=== PATIENT | male | born 1945 | race Caucasian/White ===

== ENCOUNTER 2018-09-11 07:33 | Day surgery (SDC) | payer MEDICARE, SELFPAY ==
--- NOTE | 2018-09-11 | PATH_ITS ---
[facility] Accession Number: [id number] . 01 Material submitted: . PART A: HEPATIC FLEXURE POLYP PART B: TRANSVERSE COLON POLYPS X4 PART C: SIGMOID COLON POLYPS X2 . 02 Diagnosis: A. Hepatic Flexure, Polyp, Biopsy: Sessile serrated adenoma. . B. 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 Sessile serrated adenoma in three fragments. Benign lymphoid aggregate is one fragment. No evidence of malignancy or high-grade dysplasia. . C. Sigmoid Colon, Polyps x2, Biopsies: Serrated lesions, favor sessile serrated adenomas. [facility]/09/13/2018 . 02 Comment: As part of routine software quality automation engineer, Dr. Michele also reviewed part B2 and agrees with the interpretation. . 02 Electronically signed: . Fransisca Chaudhari MD, Pathologist NPI- [id number] . 01 Gross description: . Received three formalin-filled containers, each labeled with the patient's name: . A. In a container labeled hepatic flexure polyp, the specimen consists of two less than 0.1 cm to 0.3 cm portions of tissue, entirely submitted in cassette A. B. In a container labeled transverse colon polyp, the specimen consists of four 0.2-0.6 cm portions of tissue, entirely submitted in cassette B1. Also received in the same container is a 1.0 x 1.0 x 0.7 cm portion of tissue, which is sectioned into four pieces and entirely submitted in cassette B2. C. In a container labeled sigmoid polyps x2, are two 0.3-0.5 cm portions of tissue, entirely submitted in cassette C. ([id number]) /FRR . 02 Pathologist provided ICD-10: D12.3, D12.5 . 02 CPT . 289445, 243908, 445246 Performed at: [address] [facility] [address] [id number] MD Jasbir Garcia MD Phone: [phone] Performed at: 02 [facility] [address] [place] [id number] MD Fransisca Chaudhari MD Phone: [phone]
[2018-09-11 07:50] VITALS: BP 160/82; PULSE 81; RESP 15; TEMP 36.8; O2SAT 96
[2018-09-11 07:59] VITALS: BMI 29.9
--- NOTE | 2018-09-11 08:48 | PM.HP.1 ---
History of Present Illness Date Patient Seen: 09/11/18 Time Patient Seen: 08:48 Chief complaint: 72082 Narrative: History of polyps Patient History Medical History Obstructive sleep apnea of adult (Chronic) Primary insomnia (Resolved) Excessive daytime sleepiness (Chronic) Snoring (Resolved) Bronchospastic airway disease (Acute) Family & Social History Social History: household members spouse Tobacco & Substance use: Smoking Status Never smoker Meds Home Medications Medication Instructions Recorded Confirmed Type [VITAMIN D] 2,000 iu PO QDAY #0 01/06/11 09/11/18 History albuterol sulfate [Ventolin HFA] 2 puff INHALATION PRN PRN 09/11/18 09/11/18 History aspirin 81 mg PO DAILY 09/11/18 09/11/18 History fluticasone [Flonase Allergy 4 spray INTRANASAL PRN PRN 09/11/18 09/11/18 History Relief] tiotropium bromide [Spiriva with 1 puff INHALATION 09/11/18 History HandiHaler] Allergies Allergy/AdvReac Type Severity Reaction Status Date / Time morphine AdvReac Mild Redness of Verified 09/11/18 07:49 Skin Exam Vital Signs (past 8 hours): - 09/11/18 07:50 Temperature 98.2 F Pulse Rate 81 Respiratory Rate 15 Blood Pressure 160/82 H Pulse Oximetry 96 Oxygen Delivery Method Room Air Narrative Exam Narrative: Oropharynx free of lesions Chest clear to auscultation percussion Cardiac exam reveals no S3 or murmur Assessment & Plan Plan: Assessment/Plan Narrative: History of adenomatous colon polyps need for follow-up colonoscopy at a 3 year interval. Risks, benefits, alternatives have been explained. Colonoscopy will be performed today.
[2018-09-11] MEDS: SODIUM CHLORIDE 0.9% 1,000 ML 42 ML IV (08:59)
--- NOTE | 2018-09-11 09:23 | PM.OP.ENDO ---
Operative Date/Time/Diagnoses Date of procedure: 09/11/18 Time of procedure: 09:23 Pre-op diagnosis: See indication and findings Post-op diagnosis: same Procedure & Clinicians Study performed: Colonoscopy Same procedure as scheduled: Yes Surgeon: Maxime Atkins Procedure Notes Procedure in detail: After informed consent was obtained the patient was placed in left lateral decubitus position. The video colonoscope was introduced the rectum slowly advanced to the cecum. On slow withdrawal mucosa was carefully examined. Scope was removed. Patient tolerated procedure well. Blood loss none Complications none Sedation Total sedation time 41 min Versed 9 mg fentanyl 100 mcg IV titration Findings is 1. 8 mm polyp at the hepatic flexure which was hot snared and removed completely. The specimen was lost. 2. Two somewhat flat 1-1.2 cm polyps were seen opposite each other in the mid transverse colon. Both were injected with saline to lift and both were removed with snare. Both were retrieved. 3. One 4 middle polyp in the proximal transverse colon which was Jumbo biopsy removed completely and placed in the same bottle as 2. 4. One 1.8 cm semi pedunculated polyp in the distal transverse colon. This was injected to raise it and hot snared and removed completely and retrieved. This was placed in the same bottle as 2. 5. Two 8 mm semi pedunculated sigmoid polyps immediately adjacent to each other. Both were hot snared and removed completely and retrieved. 6. Extensive diverticulosis sigmoid colon Will get back to Mr. Peña on his polyps and need for follow-up in 1 or 3 years. Document created with voice recognition software so may contain inadvertent tears.
[2018-09-11] MEDS: MIDAZOLAM 5 MG/5 ML VIAL IV (10:02)
[2018-09-11] MEDS: fentaNYL 250 MCG/5 ML INJ IV (10:03)
[2018-09-11 10:22] VITALS: BP 125/71; PULSE 68; RESP 17; TEMP 36.6; O2SAT 92
[2018-09-11 10:27] VITALS: BP 119/66; PULSE 66; RESP 16; TEMP 36.6; O2SAT 95
[2018-09-11 10:32] VITALS: BP 117/66; PULSE 66; RESP 17; TEMP 37.1; O2SAT 96
[2018-09-11 10:40] VITALS: BP 119/65; PULSE 74; RESP 15; TEMP 37; O2SAT 92
[2018-09-11 11:33] VITALS: BP 127/75; PULSE 70; RESP 15; TEMP 36.2; O2SAT 97
== END 2018-09-11 11:40 | disposition home or self-care (01) ==
PROVIDERS: Family Provider Internal Medicine; PCP Internal Medicine; Visit Provider Internal Medicine Gastroenterology
PROC: 0DJD8ZZ Inspection of Lower Intestinal Tract, Via Natural or Artificial Opening Endoscopic (ICD-10-PCS; CPT 45378; principal; 2018-09-11 09:30)
DX: Z86.010 Personal history of colon polyps (principal); K57.30 Diverticulosis of large intestine without perforation or abscess without bleeding; G47.33 Obstructive sleep apnea (adult) (pediatric); D12.3 Benign neoplasm of transverse colon; D12.5 Benign neoplasm of sigmoid colon
CPT/HCPCS: 45385; 45380; J2250; J3010

== ENCOUNTER 2018-09-16 19:16 | Emergency (ER) | payer MEDICARE, SELFPAY ==
[2018-09-16 19:21] VITALS: BP 120/86; PULSE 70; RESP 20; TEMP 36.6; O2SAT 100; BMI 29.9
--- NOTE | 2018-09-16 19:25 | DI.CT.S_ITS ---
PROCEDURE: CT ABDOMEN PELVIS W CON INDICATIONS: gi bleeding, had c-scope and multi polyps removed TECHNIQUE: After the administration of intravenous contrast, 5 mm thick sections acquired from the diaphragm to the symphysis. 5 mm coronal and sagittal reformats were acquired. For radiation dose reduction, the following was used: automated exposure control, adjustment of mA and/or kV according to patient size. COMPARISON: [facility], , ABD AORTA ANEURYSM SCREENING, 04/13/2015, 9:01. FINDINGS: Image quality: Excellent. ABDOMEN: Lung bases: Lung bases are clear. Heart size is normal. Solid organs: Liver is mildly prominent. Hepatic steatosis is present. Gallbladder is unremarkable. Biliary system is non dilated. Pancreas enhances normally. Spleen is normal in size and enhancement. No adrenal nodules. Kidneys demonstrate normal enhancement, without hydronephrosis. Bilateral low attenuation foci are present the largest is on the right measuring 13 mm. Peritoneum and bowel: Bowel loops demonstrate normal wall thickness and caliber. No free fluid or air. Minimal scattered diverticula are present. Nodes and vessels: No retroperitoneal or mesenteric adenopathy by size criteria. Aorta and inferior vena cava are normal in size. Miscellaneous: No ventral hernias. Hiatal hernia is present. In addition, mild distal esophageal thickening is present. PELVIS: Genitourinary: Bladder wall thickness is normal. Miscellaneous: Prominent bilateral fat containing inguinal hernias are present. The prostate gland is enlarged. Bones: No suspicious bony lesions. No vertebral body compression fractures. IMPRESSION: 1. No acute intra-abdominal or pelvic process. 2. Renal cysts. 3. Minimal diverticula without inflammatory change. 4. Hiatal hernia with distal esophageal thickening. The latter could be secondary to esophagitis. Clinical correlation is recommended and followup as indicated. Dictated by: Viktoria Freeman M.D. on 09/16/2018 at 20:47 Approved by: Viktoria Freeman M.D. on 09/16/2018 at 20:51
[2018-09-16 19:32] LABS: Add Manual Diff / Slide Review NO; Basophils Percent Auto 0.5 % (0-2); Eosinophils Percent Auto 0.9 % (2-4); Hematocrit 37.3 % (41-53); Hemoglobin 12.5 g/dL (13.5-17.5); Lymphocytes Percent Auto 19.9 % (25-40); Mean Corpuscular HGB Conc 33.5 % (30-36); Mean Corpuscular Hemoglobin 32.8 PG (26-34); Mean Corpuscular Volume 97.9 fL (80-100); Monocytes Percent Auto 11.3 % (3-14); Neutrophils Absolute Auto 7400 /uL (1500-7000); Neutrophils Percent Auto 67.4 % (50-75); Platelet Count 238 X10^3/uL (150-400); Red Blood Cell Count 3.81 X10^6/uL (4.5-5.9); Red Cell Distribution Width 12.7 % (11.6-14.8); White Blood Cell Count 10.9 X10^3/uL (4.5-11.0)
[2018-09-16 19:33] LABS: Prothrombin Time 11.1 SECONDS (10.1-12.7)
--- NOTE | 2018-09-16 19:33 | ED.GIBLEED ---
HPI - GI Bleed General Chief complaint: Syncope Stated complaint: Possible GI Bleed Time Seen by Provider: 09/16/18 19:18 Source: patient, EMS and old records reviewed Mode of arrival: EMS Limitations: no limitations History of Present Illness HPI Narrative: This is a 73-year-old male who comes to the emergency department with complaint of syncope. Patient states he has been having coffee-ground stools about every 45 min to an hour since about 10 30 this morning. Patient had a colonoscopy with 7 polyps removed 1 of which he was told was large on the 11 of September. Patient states he did have any bleeding until today. Initially he saw little bright red blood mixed with the black tarry and then has since been this black coffee-ground stool. Patient has felt lightheaded, he had a syncopal episode while on the toilet. He states he felt it coming on it lasted about a couple seconds. His caught him so he did not fall or have any injuries. He has not had any nausea or vomiting, he denies any abdominal pain. No chest pain. He has felt a little short of breath immediately after the syncopal episode. He has not had any urinary symptoms. He does normally take an aspirin but has not had any since before the colonoscopy except for last night. He has a history of some COPD but denies any other medical problems. He has had a ankle surgery in the past but no other surgeries. Related Data Home Medications Medication Instructions Recorded Confirmed [VITAMIN D] 2,000 iu PO QDAY #0 01/06/11 09/11/18 albuterol sulfate [Ventolin HFA] 2 puff INHALATION PRN PRN 09/11/18 09/11/18 aspirin 81 mg PO DAILY 09/11/18 09/11/18 fluticasone [Flonase Allergy 4 spray INTRANASAL PRN PRN 09/11/18 09/11/18 Relief] tiotropium bromide [Spiriva with 1 puff INHALATION 09/11/18 HandiHaler] Allergies Allergy/AdvReac Type Severity Reaction Status Date / Time morphine AdvReac Mild Redness of Verified 09/11/18 07:49 Skin Review of Systems Review of Systems All systems reviewed & are unremarkable except as noted in HPI and below Constitutional Denies weakness Cardiovascular Denies chest pain, Reports diaphoresis, Reports syncope, Denies irregular heart rhythm, Reports lightheadedness, Denies palpitations, Reports dyspnea (After syncope), Denies dyspnea on exertion and Denies orthopnea Respiratory Reports dyspnea (After syncope) and Denies dyspnea on exertion Gastrointestinal Gastrointestinal: Denies abdominal pain, Reports melena, Reports hematochezia, Denies change in bowel habits, Denies coffee ground emesis, Denies constipation, Reports diarrhea, Denies nausea, Denies vomiting and Denies hematemesis Genitourinary Denies hematuria and Denies dysuria Integumentary/Breasts Denies unusual bruising Neurologic Reports syncope and Denies weakness Endocrine Denies palpitations [facility] Medical History Obstructive sleep apnea of adult (Chronic) Primary insomnia (Resolved) Excessive daytime sleepiness (Chronic) Snoring (Resolved) Bronchospastic airway disease (Acute) Surgical History S/P colonoscopic polypectomy (Acute) Social History household members: spouse Smoking Status: Never smoker Exam Narrative Exam Narrative: GENERAL: Alert and oriented x three, well-nourished, well-appearing male in mild distress. Patient is not diaphoretic to touch. HEENT: Head normocephalic, atraumatic, EOMI, pupils reactive, face symmetric, no conjunctival pallor, moist mucous membranes NECK: Supple, full range of motion CARDIOVASCULAR: Regular rate and rhythm without murmurs, rubs or gallops. RESPIRATORY: Breath sounds equal bilaterally, no wheezes rales or rhonchi. ABDOMEN: Soft, nontender. Normoactive bowel sounds all 4 quadrants. No guarding or rebound, rigidity, no mass, nondistended. Patient's Hemoccult is positive. There is no gross red blood on exam. : No CVA tenderness EXTREMITIES: Normal range of motion, no clubbing or edema. Neurovascularly intact NEUROLOGICAL: Cranial nerves II through XII grossly intact. Moving all extremities SKIN: Warm, dry, no petechiae, no rashes or lesions. Initial Vital Signs Initial Vital Signs: Vital Signs Temperature 97.8 F 09/16/18 19:21 Pulse Rate 70 09/16/18 19:21 Respiratory Rate 20 09/16/18 19:21 Blood Pressure 120/86 09/16/18 19:21 Pulse Oximetry 100 09/16/18 19:21 Course Orders Ordered: Discontinued Medications Sodium Chloride (Normal Saline 0.9%) 1,000 mls @ 150 mls/hr IV CONT ROBERT Last Admin: 09/16/18 20:00 Dose: Sodium Chloride (Normal Saline 0.9%) 1,000 mls @ 1,000 mls/hr IV BOLUS ONE Stop: 09/16/18 20:55 Last Infusion: 09/16/18 22:13 Dose: 0 mls/hr Admin: 09/16/18 20:50 Dose: 1,000 mls/hr Pantoprazole Sodium (Protonix) 40 mg IV NOW ONE Stop: 09/16/18 19:25 Last Admin: 09/16/18 19:39 Dose: 40 mg Vital Signs - 8 hr 09/16/18 20:55 09/16/18 21:10 09/16/18 22:20 Pulse Rate 77 72 68 Respiratory Rate 23 23 20 Blood Pressure [Left Arm] 99/61 91/72 114/89 Pulse Oximetry 96 99 100 09/16/18 22:38 09/16/18 23:17 09/17/18 00:02 Pulse Rate 68 68 77 Respiratory Rate 16 20 18 Blood Pressure [Left Arm] 96/59 L 123/72 105/63 Pulse Oximetry 100 98 97 09/17/18 00:44 09/17/18 02:46 Pulse Rate 70 70 Respiratory Rate 17 17 Blood Pressure [Left Arm] 93/46 L 108/62 Pulse Oximetry 99 94 MDM - GI Bleed Lab Data Attestation: I reviewed the patient's lab results. Result diagrams: 09/16/18 19:15 09/16/18 19:15 Lab Results 09/16/18 09/16/18 09/16/18 Range/Units 19:15 19:15 19:15 WBC 10.9 (4.5-11.0) X10^3/uL RBC 3.81 L (4.5-5.9) X10^6/uL Hgb 12.5 L (13.5-17.5) g/dL Hct 37.3 L (41-53) % MCV 97.9 (80-100) fL MCH 32.8 (26-34) PG MCHC 33.5 (30-36) % RDW 12.7 (11.6-14.8) % Plt Count 238 (150-400) X10^3/uL Neut % (Auto) 67.4 (50-75) % Lymph % (Auto) 19.9 L (25-40) % Barry % (Auto) 11.3 (3-14) % Eos % (Auto) 0.9 L (2-4) % Baso % (Auto) 0.5 (0-2) % Neut # (Auto) 7400 H (9911-1858) /uL PT 11.1 (10.1-12.7) SECONDS INR 1.0 (0.9-1.3) APTT 22 L (26.4-36.2) SECONDS Sodium 142 (137-145) mmol/L Potassium 3.9 (3.4-5.1) mmol/L Chloride 104 (98-107) mmol/L Carbon Dioxide 22 (22-32) mmol/L BUN 17 (9-20) mg/dL Creatinine 1.30 H (0.66-1.25) mg/dL Estimated GFR 54.0 L (>60) mL/min BUN/Creatinine Ratio 13.1 (6-22) Glucose 182 H (80-110) mg/dL Calcium 9.0 (8.4-10.2) mg/dL Total Bilirubin 0.3 (0.2-1.3) mg/dL AST 18 (17-59) IU/L ALT 26 (21-72) IU/L Alkaline Phosphatase 55 (38-126) U/L Troponin I < 0.012 (0.01-0.034) ng/mL Total Protein 6.6 (6.3-8.2) g/dL Albumin 4.0 (3.5-5.0) g/dL Globulin 2.6 (1.7-4.1) g/dL Albumin/Globulin Ratio 1.5 (1.0-2.8) Lipase 51 (23-300) U/L Blood Type Antibody Screen 09/16/18 09/16/18 Range/Units 19:15 19:34 WBC (4.5-11.0) X10^3/uL RBC (4.5-5.9) X10^6/uL Hgb (13.5-17.5) g/dL Hct (41-53) % MCV (80-100) fL MCH (26-34) PG MCHC (30-36) % RDW (11.6-14.8) % Plt Count (150-400) X10^3/uL Neut % (Auto) (50-75) % Lymph % (Auto) (25-40) % Barry % (Auto) (3-14) % Eos % (Auto) (2-4) % Baso % (Auto) (0-2) % Neut # (Auto) (8695-1231) /uL PT (10.1-12.7) SECONDS INR (0.9-1.3) APTT (26.4-36.2) SECONDS Sodium (137-145) mmol/L Potassium (3.4-5.1) mmol/L Chloride (98-107) mmol/L Carbon Dioxide (22-32) mmol/L BUN (9-20) mg/dL Creatinine (0.66-1.25) mg/dL Estimated GFR (>60) mL/min BUN/Creatinine Ratio (6-22) Glucose (80-110) mg/dL Calcium (8.4-10.2) mg/dL Total Bilirubin (0.2-1.3) mg/dL AST (17-59) IU/L ALT (21-72) IU/L Alkaline Phosphatase (38-126) U/L Troponin I Cancelled (0.01-0.034) ng/mL Total Protein (6.3-8.2) g/dL Albumin (3.5-5.0) g/dL Globulin (1.7-4.1) g/dL Albumin/Globulin Ratio (1.0-2.8) Lipase (23-300) U/L Blood Type O Positive Antibody Screen Negative Point of Care Testing Stool Occult Blood Positive Imaging Data CT scan - abdomen: Radiologist's impression: [address] [address] [address] Scan Report Signed Patient: Je Small MR#: [id number] : 1945 Acct:[id number] Age/Sex: 73 / M Date of Service: 09/16/18 Loc: ED Accession Number: [id number] Procedure: CT abdomen pelvis w con Ordering Provider: Danica Leahy D.O. PROCEDURE: CT ABDOMEN PELVIS W CON INDICATIONS: gi bleeding, had c-scope and multi polyps removed TECHNIQUE: After the administration of intravenous contrast, 5 mm thick sections acquired from the diaphragm to the symphysis. 5 mm coronal and sagittal reformats were acquired. For radiation dose reduction, the following was used: automated exposure control, adjustment of mA and/or kV according to patient size. COMPARISON: [facility], , ABD AORTA ANEURYSM SCREENING, 04/13/2015, 9:01. FINDINGS: Image quality: Excellent. ABDOMEN: Lung bases: Lung bases are clear. Heart size is normal. Solid organs: Liver is mildly prominent. Hepatic steatosis is present. Gallbladder is unremarkable. Biliary system is non dilated. Pancreas enhances normally. Spleen is normal in size and enhancement. No adrenal nodules. Kidneys demonstrate normal enhancement, without hydronephrosis. Bilateral low attenuation foci are present the largest is on the right measuring 13 mm. Peritoneum and bowel: Bowel loops demonstrate normal wall thickness and caliber. No free fluid or air. Minimal scattered diverticula are present. Nodes and vessels: No retroperitoneal or mesenteric adenopathy by size criteria. Aorta and inferior vena cava are normal in size. Miscellaneous: No ventral hernias. Hiatal hernia is present. In addition, mild distal esophageal thickening is present. PELVIS: Genitourinary: Bladder wall thickness is normal. Miscellaneous: Prominent bilateral fat containing inguinal hernias are present. The prostate gland is enlarged. Bones: No suspicious bony lesions. No vertebral body compression fractures. IMPRESSION: 1. No acute intra-abdominal or pelvic process. 2. Renal cysts. 3. Minimal diverticula without inflammatory change. 4. Hiatal hernia with distal esophageal thickening. The latter could be secondary to esophagitis. Clinical correlation is recommended and followup as indicated. Dictated by: Viktoria Freeman M.D. on 09/16/2018 at 20:47 Approved by: Viktoria Freeman M.D. on 09/16/2018 at 20:51 ECG Data Attestation: I personally reviewed and interpreted this ECG as follows: Interpretation: Sinus rhythm with a rate of 66, right bundle branch block and left anterior fascicular block. QTC of 410. No clear ST segments noted. No prior EKGs. MDM Narrative Medical decision making narrative: Patient comes in with positive Hemoccult and complaint of GI bleeding. Patient has a recent polypectomy with some multiple polyps. Patient's hemoglobin appears stable from prior, he has an elevation in his creatinine but not in his BUN. His electrolytes are otherwise normal. Patient pressure has drifted down to the 90 systolic range. It is stated in the 90s. Patient does get dizzy when he is standing or tries to sit upright. He has not been tachycardic it is not any medications that should blunt a tachycardic response. The patient case was discussed with Dr. Rice who is on for his county judge. She practices through [facility] in [place]. They would like patient to be transferred in order to do prep and colonoscopy. Spoke with Dr. Martinez hospitalist at [facility] who accepts for transfer. There is some delay in the actual transfer as they have beds available but need a little bit of time. Patient and family are comfortable with the plan and aware of transfer. Patient pressure consistently in the 90's during stay, no tachycardia. Patient does feel dizzy when upright/standing. Patient most recent BP 100 systolic. Discharge Plan Departure Clinical Impression: Acute GI bleeding, Syncope Prescriptions: No Action [VITAMIN D] 2,000 iu PO QDAY Qty: 0 RF: 0 aspirin 81 mg Tablet,Chewable 81 mg PO DAILY RF: 0 albuterol sulfate [Ventolin HFA] 90 mcg/actuation HFA aerosol inhaler 2 puff Inhalation PRN PRN (Reason: Allergy Symptoms) RF: 0 fluticasone [Flonase Allergy Relief] 50 mcg/actuation [place],Suspension 4 spray Intranasal PRN PRN (Reason: Allergy Symptoms) RF: 0 tiotropium bromide [Spiriva with HandiHaler] 18 mcg capsule, w/inhalation device 1 puff Inhalation RF: 0 Referrals: Jose Gonzalez MD [Primary Care Provider] -
[2018-09-16 19:36] LABS: PTT Partial Thromboplastin Tim 22 SECONDS (26.4-36.2)
--- NOTE | 2018-09-16 19:37 | ED_ITS ---
HPI - GI Bleed General Chief complaint: Syncope Stated complaint: Possible GI Bleed Time Seen by Provider: 09/16/18 19:18 Source: patient, EMS and old records reviewed Mode of arrival: EMS Limitations: no limitations History of Present Illness HPI Narrative: This is a 73-year-old male who comes to the emergency department with complaint of syncope. Patient states he has been having coffee-ground stools about every 45 min to an hour since about 10 30 this morning. Patient had a colonoscopy with 7 polyps removed 1 of which he was told was large on the 11 of September. Patient states he did have any bleeding until today. Initially he saw little bright red blood mixed with the black tarry and then has since been this black coffee-ground stool. Patient has felt lightheaded, he had a syncopal episode while on the toilet. He states he felt it coming on it lasted about a couple seconds. His caught him so he did not fall or have any injuries. He has not had any nausea or vomiting, he denies any abdominal pain. No chest pain. He has felt a little short of breath immediately after the syncopal episode. He has not had any urinary symptoms. He does normally take an aspirin but has not had any since before the colonoscopy except for last night. He has a history of some COPD but denies any other medical problems. He has had a ankle surgery in the past but no other surgeries. Related Data Home Medications Medication Instructions Recorded Confirmed [VITAMIN D] 2,000 iu PO QDAY #0 01/06/11 09/11/18 albuterol sulfate [Ventolin HFA] 2 puff INHALATION PRN PRN 09/11/18 09/11/18 aspirin 81 mg PO DAILY 09/11/18 09/11/18 fluticasone [Flonase Allergy 4 spray INTRANASAL PRN PRN 09/11/18 09/11/18 Relief] tiotropium bromide [Spiriva with 1 puff INHALATION 09/11/18 HandiHaler] Allergies Allergy/AdvReac Type Severity Reaction Status Date / Time morphine AdvReac Mild Redness of Verified 09/11/18 07:49 Skin Review of Systems Review of Systems All systems reviewed & are unremarkable except as noted in HPI and below Constitutional Denies weakness Cardiovascular Denies chest pain, Reports diaphoresis, Reports syncope, Denies irregular heart rhythm, Reports lightheadedness, Denies palpitations, Reports dyspnea (After syncope), Denies dyspnea on exertion and Denies orthopnea Respiratory Reports dyspnea (After syncope) and Denies dyspnea on exertion Gastrointestinal Gastrointestinal: Denies abdominal pain, Reports melena, Reports hematochezia, Denies change in bowel habits, Denies coffee ground emesis, Denies constipation , Reports diarrhea, Denies nausea, Denies vomiting and Denies hematemesis Genitourinary Denies hematuria and Denies dysuria Integumentary/Breasts Denies unusual bruising Neurologic Reports syncope and Denies weakness Endocrine Denies palpitations [facility] Medical History Obstructive sleep apnea of adult (Chronic) Primary insomnia (Resolved) Excessive daytime sleepiness (Chronic) Snoring (Resolved) Bronchospastic airway disease (Acute) Surgical History S/P colonoscopic polypectomy (Acute) Social History household members: spouse Smoking Status: Never smoker Exam Narrative Exam Narrative: GENERAL: Alert and oriented x three, well-nourished, well- appearing male in mild distress. Patient is not diaphoretic to touch. HEENT: Head normocephalic, atraumatic, EOMI, pupils reactive, face symmetric, no conjunctival pallor, moist mucous membranes NECK: Supple, full range of motion CARDIOVASCULAR: Regular rate and rhythm without murmurs, rubs or gallops. RESPIRATORY: Breath sounds equal bilaterally, no wheezes rales or rhonchi. ABDOMEN: Soft, nontender. Normoactive bowel sounds all 4 quadrants. No guarding or rebound, rigidity, no mass, nondistended. Patient's Hemoccult is positive. There is no gross red blood on exam. : No CVA tenderness EXTREMITIES: Normal range of motion, no clubbing or edema. Neurovascularly intact NEUROLOGICAL: Cranial nerves II through XII grossly intact. Moving all extremities SKIN: Warm, dry, no petechiae, no rashes or lesions. Initial Vital Signs Initial Vital Signs: Vital Signs Temperature 97.8 F 09/16/18 19:21 Pulse Rate 70 09/16/18 19:21 Respiratory Rate 20 09/16/18 19:21 Blood Pressure 120/86 09/16/18 19:21 Pulse Oximetry 100 09/16/18 19:21 Course Orders Ordered: Discontinued Medications Sodium Chloride (Normal Saline 0.9%) 1,000 mls @ 150 mls/hr IV CONT ROBERT Last Admin: 09/16/18 20:00 Dose: Sodium Chloride (Normal Saline 0.9%) 1,000 mls @ 1,000 mls/hr IV BOLUS ONE Stop: 09/16/18 20:55 Last Infusion: 09/16/18 22:13 Dose: 0 mls/hr Admin: 09/16/18 20:50 Dose: 1,000 mls/hr Pantoprazole Sodium (Protonix) 40 mg IV NOW ONE Stop: 09/16/18 19:25 Last Admin: 09/16/18 19:39 Dose: 40 mg Vital Signs - 8 hr 09/16/18 20:55 09/16/18 21:10 09/16/18 22:20 Pulse Rate 77 72 68 Respiratory Rate 23 23 20 Blood Pressure [Left Arm] 99/61 91/72 114/89 Pulse Oximetry 96 99 100 09/16/18 22:38 09/16/18 23:17 09/17/18 00:02 Pulse Rate 68 68 77 Respiratory Rate 16 20 18 Blood Pressure [Left Arm] 96/59 L 123/72 105/63 Pulse Oximetry 100 98 97 09/17/18 00:44 09/17/18 02:46 Pulse Rate 70 70 Respiratory Rate 17 17 Blood Pressure [Left Arm] 93/46 L 108/62 Pulse Oximetry 99 94 MDM - GI Bleed Lab Data Attestation: I reviewed the patient's lab results. Result diagrams: 09/16/18 19:15 09/16/18 19:15 Lab Results 09/16/18 09/16/18 09/16/18 Range/Units 19:15 19:15 19:15 WBC 10.9 (4.5-11.0) X10^3/uL RBC 3.81 L (4.5-5.9) X10^6/uL Hgb 12.5 L (13.5-17.5) g/dL Hct 37.3 L (41-53) % MCV 97.9 (80-100) fL MCH 32.8 (26-34) PG MCHC 33.5 (30-36) % RDW 12.7 (11.6-14.8) % Plt Count 238 (150-400) X10^3/uL Neut % (Auto) 67.4 (50-75) % Lymph % (Auto) 19.9 L (25-40) % [place] % (Auto) 11.3 (3-14) % Eos % (Auto) 0.9 L (2-4) % Baso % (Auto) 0.5 (0-2) % Neut # (Auto) 7400 H (0363-3740) /uL PT 11.1 (10.1-12.7) SECONDS INR 1.0 (0.9-1.3) APTT 22 L (26.4-36.2) SECONDS Sodium 142 (137-145) mmol/L Potassium 3.9 (3.4-5.1) mmol/L Chloride 104 (98-107) mmol/L Carbon Dioxide 22 (22-32) mmol/L BUN 17 (9-20) mg/dL Creatinine 1.30 H (0.66-1.25) mg/dL Estimated GFR 54.0 L (>60) mL/min BUN/Creatinine Ratio 13.1 (6-22) Glucose 182 H (80-110) mg/dL Calcium 9.0 (8.4-10.2) mg/dL Total Bilirubin 0.3 (0.2-1.3) mg/dL AST 18 (17-59) IU/L ALT 26 (21-72) IU/L Alkaline Phosphatase 55 (38-126) U/L Troponin I < 0.012 (0.01-0.034) ng/mL Total Protein 6.6 (6.3-8.2) g/dL Albumin 4.0 (3.5-5.0) g/dL Globulin 2.6 (1.7-4.1) g/dL Albumin/Globulin Ratio 1.5 (1.0-2.8) Lipase 51 (23-300) U/L Blood Type Antibody Screen 09/16/18 09/16/18 Range/Units 19:15 19:34 WBC (4.5-11.0) X10^3/uL RBC (4.5-5.9) X10^6/uL Hgb (13.5-17.5) g/dL Hct (41-53) % MCV (80-100) fL MCH (26-34) PG MCHC (30-36) % RDW (11.6-14.8) % Plt Count (150-400) X10^3/uL Neut % (Auto) (50-75) % Lymph % (Auto) (25-40) % [place] % (Auto) (3-14) % Eos % (Auto) (2-4) % Baso % (Auto) (0-2) % Neut # (Auto) (2882-1939) /uL PT (10.1-12.7) SECONDS INR (0.9-1.3) APTT (26.4-36.2) SECONDS Sodium (137-145) mmol/L Potassium (3.4-5.1) mmol/L Chloride (98-107) mmol/L Carbon Dioxide (22-32) mmol/L BUN (9-20) mg/dL Creatinine (0.66-1.25) mg/dL Estimated GFR (>60) mL/min BUN/Creatinine Ratio (6-22) Glucose (80-110) mg/dL Calcium (8.4-10.2) mg/dL Total Bilirubin (0.2-1.3) mg/dL AST (17-59) IU/L ALT (21-72) IU/L Alkaline Phosphatase (38-126) U/L Troponin I Cancelled (0.01-0.034) ng/mL Total Protein (6.3-8.2) g/dL Albumin (3.5-5.0) g/dL Globulin (1.7-4.1) g/dL Albumin/Globulin Ratio (1.0-2.8) Lipase (23-300) U/L Blood Type O Positive Antibody Screen Negative Point of Care Testing Stool Occult Blood Positive Imaging Data CT scan - abdomen: Radiologist's impression: [address] [address] [address] Scan Report Signed Patient: Je Small MR#: [id number] : 1945 Acct:[id number] Age/Sex: 73 / M Date of Service: 09/16/18 Loc: ED Accession Number: [id number] Procedure: CT abdomen pelvis w con Ordering Provider: Danica Leahy D.O. PROCEDURE: CT ABDOMEN PELVIS W CON INDICATIONS: gi bleeding, had c-scope and multi polyps removed TECHNIQUE: After the administration of intravenous contrast, 5 mm thick sections acquired from the diaphragm to the symphysis. 5 mm coronal and sagittal reformats were acquired. For radiation dose reduction, the following was used: automated exposure control, adjustment of mA and/or kV according to patient size. COMPARISON: [facility], , ABD AORTA ANEURYSM SCREENING, 04/13/2015, 9:01. FINDINGS: Image quality: Excellent. ABDOMEN: Lung bases: Lung bases are clear. Heart size is normal. Solid organs: Liver is mildly prominent. Hepatic steatosis is present. Gallbladder is unremarkable. Biliary system is non dilated. Pancreas enhances normally. Spleen is normal in size and enhancement. No adrenal nodules. Kidneys demonstrate normal enhancement, without hydronephrosis. Bilateral low attenuation foci are present the largest is on the right measuring 13 mm. Peritoneum and bowel: Bowel loops demonstrate normal wall thickness and caliber. No free fluid or air. Minimal scattered diverticula are present. Nodes and vessels: No retroperitoneal or mesenteric adenopathy by size criteria. Aorta and inferior vena cava are normal in size. Miscellaneous: No ventral hernias. Hiatal hernia is present. In addition, mild distal esophageal thickening is present. PELVIS: Genitourinary: Bladder wall thickness is normal. Miscellaneous: Prominent bilateral fat containing inguinal hernias are present. The prostate gland is enlarged. Bones: No suspicious bony lesions. No vertebral body compression fractures. IMPRESSION: 1. No acute intra-abdominal or pelvic process. 2. Renal cysts. 3. Minimal diverticula without inflammatory change. 4. Hiatal hernia with distal esophageal thickening. The latter could be secondary to esophagitis. Clinical correlation is recommended and followup as indicated. Dictated by: Viktoria Freeman M.D. on 09/16/2018 at 20:47 Approved by: Viktoria Freeman M.D. on 09/16/2018 at 20:51 ECG Data Attestation: I personally reviewed and interpreted this ECG as follows: Interpretation: Sinus rhythm with a rate of 66, right bundle branch block and left anterior fascicular block. QTC of 410. No clear ST segments noted. No prior EKGs. MDM Narrative Medical decision making narrative: Patient comes in with positive Hemoccult and complaint of GI bleeding. Patient has a recent polypectomy with some multiple polyps. Patient's hemoglobin appears stable from prior, he has an elevation in his creatinine but not in his BUN. His electrolytes are otherwise normal. Patient pressure has drifted down to the 90 systolic range. It is stated in the 90s. Patient does get dizzy when he is standing or tries to sit upright. He has not been tachycardic it is not any medications that should blunt a tachycardic response. The patient case was discussed with Dr. 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 She practices through [facility] in [place]. They would like patient to be transferred in order to do prep and colonoscopy. Spoke with Dr. Martinez hospitalist at [place] who accepts for transfer. There is some delay in the actual transfer as they have beds available but need a little bit of time. Patient and family are comfortable with the plan and aware of transfer. Patient pressure consistently in the 90's during stay, no tachycardia. Patient does feel dizzy when upright/standing. Patient most recent BP 100 systolic. Discharge Plan Departure Clinical Impression: Acute GI bleeding, Syncope Prescriptions: No Action [VITAMIN D] 2,000 iu PO QDAY Qty: 0 RF: 0 aspirin 81 mg Tablet,Chewable 81 mg PO DAILY RF: 0 albuterol sulfate [Ventolin HFA] 90 mcg/actuation HFA aerosol inhaler 2 puff Inhalation PRN PRN (Reason: Allergy Symptoms) RF: 0 fluticasone [Flonase Allergy Relief] 50 mcg/actuation Isabella,Suspension 4 spray Intranasal PRN PRN (Reason: Allergy Symptoms) RF: 0 tiotropium bromide [Spiriva with HandiHaler] 18 mcg capsule, w/inhalation device 1 puff Inhalation RF: 0 Referrals: Jose Gonzalez MD [Primary Care Provider] -
[2018-09-16] MEDS: PANTOPRAZOLE 40 MG VIAL IV (19:39)
[2018-09-16 19:43] LABS: Alanine Aminotransferase 26 IU/L (21-72); Albumin Globulin Ratio 1.5 (1.0-2.8); Alkaline Phosphatase 55 U/L (38-126); Aspartate Aminotransferase 18 IU/L (17-59); BUN Creatinine Ratio 13.1 (6-22); Bilirubin Total 0.3 mg/dL (0.2-1.3); Blood Urea Nitrogen 17 mg/dL (9-20); Carbon Dioxide 22 mmol/L (22-32); Chloride 104 mmol/L (98-107); Globulin 2.6 g/dL (1.7-4.1); Glucose 182 mg/dL (80-110); HEMOLYSIS < 15 (0-50); Lipase 51 U/L (23-300); Potassium 3.9 mmol/L (3.4-5.1); Sodium 142 mmol/L (137-145); Total Protein 6.6 g/dL (6.3-8.2)
[2018-09-16 19:56] LABS: Troponin I < 0.012 ng/mL (0.01-0.034)
[2018-09-16] MEDS: SODIUM CHLORIDE 0.9% 1,000 ML 1000 ML IV (20:50)
[2018-09-16 20:55] VITALS: BP 99/61; PULSE 77; RESP 23; O2SAT 96
--- NOTE | 2018-09-16 21:09 | PC.NURSE ---
Noted pt's BP as 91/72 with HR in 70's. Pt awake and alert, pt reports feeling better and lightheadedness improved.
[2018-09-16 21:10] VITALS: BP 91/72; PULSE 71; PULSE 72; RESP 18; RESP 23; O2SAT 100; O2SAT 99
[2018-09-16 22:20] VITALS: BP 114/89; PULSE 68; RESP 20; O2SAT 100
[2018-09-16 22:38] VITALS: BP 96/59; PULSE 68; RESP 16; O2SAT 100
[2018-09-16 23:17] VITALS: BP 123/72; PULSE 68; RESP 20; O2SAT 98
[2018-09-17 00:02] VITALS: BP 105/63; PULSE 77; RESP 18; O2SAT 97
[2018-09-17 00:44] VITALS: BP 93/46; PULSE 70; RESP 17; O2SAT 99
[2018-09-17 02:46] VITALS: BP 108/62; PULSE 70; RESP 17; O2SAT 94
--- NOTE | 2018-09-17 04:04 | PC.NURSE ---
Pt ambulated in stable gaits from bed 6 and around the nursing corbin. Drinking a cup of water w/o N-V for hydration
[2018-09-17 04:46] VITALS: BP 97/41; PULSE 60; O2SAT 94
[2018-09-17 05:00] VITALS: BP 96/47; PULSE 58; RESP 17; O2SAT 96
== END 2018-09-17 05:10 | disposition short-term general hospital (02) ==
LOC: ED 19:24
PROVIDERS: Emergency Provider Emergency Medicine; Family Provider Internal Medicine; PCP Internal Medicine
DX: K92.2 Gastrointestinal hemorrhage, unspecified (principal); R55 Syncope and collapse
CPT/HCPCS: 36591; 74177; 80053; 82272; 83690; 84484; 85025; 85610; 85730; 86850; 86900; 86901; 93005; 93041; 96361; 96374; 99285; C9113; Q9967

== ENCOUNTER → 2018-10-23 10:30 | Outpatient (CLI) | payer MEDICARE, SELFPAY ==
[2018-10-23 11:21] LABS: Add Manual Diff / Slide Review NO; Basophils Absolute Auto 100 /uL (0-100); Eosinophils Absolute Auto 100 /uL (0-450); Eosinophils Percent Auto 1.8 % (2-4); Hematocrit 40.8 % (41-53); Hemoglobin 13.1 g/dL (13.5-17.5); Lymphocytes Absolute Auto 1500 /uL (1100-4500); Lymphocytes Percent Auto 26.9 % (25-40); Mean Corpuscular HGB Conc 32.2 % (30-36); Mean Corpuscular Volume 96.2 fL (80-100); Monocytes Absolute Auto 700 /uL (0-900); Monocytes Percent Auto 13.3 % (3-14); Neutrophils Absolute Auto 3200 /uL (1500-7000); Platelet Count 307 X10^3/uL (150-400); Red Blood Cell Count 4.24 X10^6/uL (4.5-5.9); White Blood Cell Count 5.6 X10^3/uL (4.5-11.0)
== END ==
PROVIDERS: PCP Internal Medicine; Visit Provider Student in an Organized Health Care Education/Training Program
DX: K92.2 Gastrointestinal hemorrhage, unspecified (principal)
CPT/HCPCS: 36415; 85025

== ENCOUNTER → 2019-04-15 06:10 | Outpatient (CLI) | payer MEDICARE, SELFPAY ==
--- NOTE | 2019-04-15 | DI.MRI.S_ITS ---
PROCEDURE: MR LUMBAR SPINE WO CON INDICATIONS: Radiculopathy, lumbar region TECHNIQUE: Noncontrast sagittal T1 spin echo and T2 fast echo, sagittal STIR, axial T1 and T2 fast spin echo through the lumbar spine. In cases with scoliosis, additional coronal T2 fast spin echo may be performed. COMPARISON: None. FINDINGS: Image quality: Excellent. Alignment and Curvature: There is normal bony alignment. Bone Marrow: Marrow is of normal overall signal. No acute vertebral body compression fractures. Spinal Cord: Conus medullaris terminates at the L1-2 disc level. Visualized cord demonstrates normal signal and size. Paraspinous Soft Tissues: No paravertebral masses. L1-L2: Normal appearance. L2-L3: Loss of the signal. No central stenosis. No neural foraminal narrowing. No neural impingement. L3-L4: Loss of the signal mild loss of disc height. Mild to moderate diffuse disc bulge. Mild narrowing of the central canal. Mild to moderate bilateral neural foraminal narrowing. No neural impingement. L4-L5: Loss of the signal. Mild to moderate diffuse disc bulge. Left foraminal disc extrusion. Extruded disc material compresses the exiting left L4 nerve root. Mild central canal narrowing. Moderate right and severe left neural foraminal narrowing. L5-S1: Loss of the signal. Mild to moderate diffuse disc bulge. No central stenosis. Moderate right and severe left neural foraminal narrowing with compression of the exiting left L5 nerve root.. IMPRESSION: 1. Multilevel degenerative disease. 2. Left L4-L5 disc extrusion. Extruded disc material impinges on the exiting left L4 nerve root and causes severe left L4-L5 neural foraminal stenosis. 3. Mild L3-L4 and L4-L5 central canal narrowing. 4. Severe right and moderate left L4-L5 and L5-S1 neural foraminal narrowing. Mild to moderate bilateral L3-L4 neural foraminal narrowing. 5. Compression of the exiting left L4 nerve root secondary to disc extrusion and the exiting left L5 nerve root secondary to left L5-S1 neural foraminal narrowing. Dictated by: Katerine Hinds MD, PhD on 04/15/2019 at 12:01 Approved by: Katerine Hinds MD, PhD on 04/15/2019 at 12:07
== END ==
PROVIDERS: Family Provider Internal Medicine; PCP Internal Medicine; Visit Provider Internal Medicine
DX: M51.36 Other intervertebral disc degeneration, lumbar region (principal); M54.16 Radiculopathy, lumbar region; M51.26 Other intervertebral disc displacement, lumbar region
CPT/HCPCS: 72148

== ENCOUNTER → 2019-12-01 17:14 | Outpatient (CLI) | payer MEDICARE, SELFPAY ==
--- NOTE | 2019-12-01 | DI.RAD.S_ITS ---
PROCEDURE: XR CHEST 2V INDICATIONS: CHEST TIGHTNESS TECHNIQUE: 2 views of the chest were acquired. COMPARISON: [facility], , CHEST 2 VIEW, 05/30/2012, 17:22. FINDINGS: Surgical changes and devices: None. Lungs and pleura: Lungs are clear. No pleural effusions or pneumothorax. Mediastinum: Mediastinal contours are normal. Heart size is normal. Bones and chest wall: No suspicious bony abnormalities. Soft tissues appear unremarkable. IMPRESSION: Normal for age, source of current chest tightness symptoms is not seen. Dictated by: Andry Fisher M.D. on 12/02/2019 at 8:59 Approved by: Andry Fisher M.D. on 12/02/2019 at 8:59
[2019-12-01 18:08] LABS: Add Manual Diff / Slide Review NO; Basophils Absolute Auto 100 /uL (0-100); Basophils Percent Auto 0.8 % (0-2); Eosinophils Absolute Auto 100 /uL (0-450); Eosinophils Percent Auto 1.1 % (2-4); Hematocrit 44.4 % (41-53); Hemoglobin 15.1 g/dL (13.5-17.5); Lymphocytes Absolute Auto 1900 /uL (1100-4500); Mean Corpuscular HGB Conc 33.9 % (30-36); Mean Corpuscular Hemoglobin 32.4 PG (26-34); Mean Corpuscular Volume 95.6 fL (80-100); Monocytes Absolute Auto 1100 /uL (0-900); Neutrophils Absolute Auto 4500 /uL (1500-7000); Neutrophils Percent Auto 59.1 % (50-75); Platelet Count 240 X10^3/uL (150-400); Red Blood Cell Count 4.65 X10^6/uL (4.5-5.9); Red Cell Distribution Width 13.1 % (11.6-14.8); White Blood Cell Count 7.6 X10^3/uL (4.5-11.0)
[2019-12-01 18:16] LABS: Alanine Aminotransferase 25 IU/L (<50); Albumin 4.7 g/dL (3.5-5.0); Albumin Globulin Ratio 1.4 (1.0-2.8); Alkaline Phosphatase 69 U/L (38-126); Aspartate Aminotransferase 28 IU/L (17-59); BUN Creatinine Ratio 17.1 (6-22); Bilirubin Total 0.4 mg/dL (0.2-1.3); Blood Urea Nitrogen 19 mg/dL (9-20); Calcium 10.1 mg/dL (8.4-10.2); Carbon Dioxide 24 mmol/L (22-32); Chloride 107 mmol/L (98-107); Creatine Kinase 193 U/L (55-170); Estimated Glomerular Filt Rate > 60.0 mL/min (>60); Globulin 3.4 g/dL (1.7-4.1); Glucose 92 mg/dL (80-110); HEMOLYSIS < 15 (0-50); Potassium 4.6 mmol/L (3.4-5.1); Sodium 140 mmol/L (137-145); Total Protein 8.1 g/dL (6.3-8.2)
[2019-12-01 18:28] LABS: Troponin I < 0.012 ng/mL (0.01-0.034)
[2019-12-01 18:46] LABS: CKMB % Relative Index 1.1 % (1.5-5.0); Creatine Kinase MB 2.21 ng/mL (<2.37)
[2019-12-01 18:57] LABS: TSH w/ Reflex to FT4 1.76 uIU/mL (0.47-4.68)
[2019-12-01 19:04] LABS: NT-proBNP (BNP-Adult 18+) 69 pg/mL (<450)
== END ==
PROVIDERS: PCP Internal Medicine; Referring Provider Physician Assistant; Visit Provider Physician Assistant
DX: R07.89 Other chest pain (principal); R06.02 Shortness of breath; R42 Dizziness and giddiness
CPT/HCPCS: 36415; 71046; 80053; 82550; 82553; 83880; 84443; 84484; 85025

== ENCOUNTER → 2019-12-16 16:00 | Outpatient (CLI) | payer MEDICARE, SELFPAY ==
--- NOTE | 2019-12-16 | DI.ECHO.S_ITS ---
[facility]---------+ [facility] +---------+ : : [address] : : : : [id number] : : : : Phone: [phone] Echocardiogram Report + + :Name: ENDER LANDAVERDE Study Date: 12/16/2019 Height: 68 in : :[facility] Weight: 192 lb : : Gender: Male BSA: 2.0 m2 : :: 1945 Age: 74 yrs BP: 138/94 mmHg: :Reason For Study: Dyspnea : :Ordering Physician: Dr. Garcia : :Carlos Performed By: Paty Hernandez : :Referring: RUBIA ARMSTRONG : + + Interpretation Summary Left ventricular wall thickness is mildly increased. The ejection fraction is estimated to be 40-45%. There is a mild dyssynchronous contraction pattern, consistent with a conduction abnormality. There is inferior wall severe hypokinesis. The right ventricular systolic pressure is estimated to be at least 17 mmHg based on an estimated right atrial pressure of 3 mm Hg. Procedure: A two-dimensional transthoracic echocardiogram with color flow and Doppler was performed. The study quality was technically adequate. Comparison is made with the echocardiogram of 06/12/2012. Spectral doppler findings not available. The patient was in sinus bradycardia with heart rates between 54-61 bpm during the exam. The patient had a bundle branch block rhythm during the exam. Left Ventricle: The left ventricular cavity is small. Left ventricular wall thickness is mildly increased. The ejection fraction is estimated to be 40- 45%. Left ventricular function has slightly worsened compared to the previous exam. There is a mild dyssynchronous contraction pattern, consistent with a conduction abnormality. There is inferior wall severe hypokinesis. Diastolic function could not be accurately assessed due to unobtainable data. Right Ventricle: The right ventricle is normal in size and function. Atria: Both atria are normal in size. There is no Doppler evidence for an interatrial shunt. Mitral Valve: The mitral valve is normal in structure and function. The mitral valve leaflets appear to open well. There is no mitral regurgitation noted. Aortic Valve: The aortic valve is trileaflet. The aortic valve opens well. There is no aortic valve stenosis. No aortic regurgitation is present. Tricuspid Valve: The tricuspid valve is normal in structure and function. There is trace tricuspid regurgitation. The right ventricular systolic pressure is estimated to be at least 17 mmHg based on an estimated right atrial pressure of 3 mm Hg. Pulmonic Valve: The pulmonic valve is not well seen, but is grossly normal. There is no pulmonic valvular regurgitation. Great Vessels: The aortic root is normal size. The ascending aorta is mildly enlarged. The IVC is of normal diameter and collapses greater than 50% with a sniff. This suggests a low right atrial pressure of 3 mm Hg. Pericardium/ Pleura There is no pericardial effusion. There is no pleural effusion. MMode/2D Measurements & Calculations LVIDd: 5.2 cm LVOT diam: 2.4 cm LVIDs: 4.1 cm Ao root diam: 3.6 cm FS: 21.0 % asc Aorta Diam: 4.2 cm EPSS: 1.0 cm IVSd: 1.3 cm LVPWd: 1.2 cm LV senior. diameter/BSA (cm/m^2): 2.6 LV sys. diameter/BSA (cm/m^2): 2.0 LA A2 area: 15.2 cm2 RA long axis: 4.9 cm LA A4 area: 14.0 cm2 RA area: 14.3 cm2 LA length (vol): 4.5 cm RA vol: 35.4 ml LA vol: 40.2 ml RA : 17.6 ml/m2 LA vol index: 20.0 ml/m2 IVC diam: 1.9 cm RVD1 (basal): 3.4 cm TAPSE: 2.0 cm Doppler Measurements & Calculations Ao V2 max: 118.5 cm/sec LVOT Max Olvin: 98.1 cm/sec Ao V2 mean: 75.6 cm/sec LV V1 max P.8 mmHg Ao max P.6 mmHg LV V1 VTI: 21.8 cm Ao mean P.7 mmHg JARED(I,D): 4.3 cm2 Ao V2 VTI: 23.5 cm JARED(V,D): 3.8 cm2 sev ratio: 0.93 JARED indexed to BSA (cm^2/m^2): 2.1 TR max olvin: 185.3 cm/sec SV(LVOT): 100.8 ml TR max P.7 mmHg PA V2 max: 91.4 cm/sec PA V2 mean: 57.1 cm/sec PA mean P.5 mmHg PA pr(Accel): 27.6 mmHg PA Accel Time: 0.11 sec Reading Physician:[id number]
== END ==
PROVIDERS: PCP Internal Medicine; Referring Provider Internal Medicine; Visit Provider Internal Medicine
DX: R06.09 Other forms of dyspnea (principal)
CPT/HCPCS: 93306

== ENCOUNTER → 2020-02-12 09:47 | Outpatient (CLI) | payer MEDICARE, SELFPAY ==
[2020-02-12 10:17] LABS: Add Manual Diff / Slide Review NO; Basophils Absolute Auto 0 /uL (0-100); Basophils Percent Auto 0.8 % (0-2); Eosinophils Absolute Auto 100 /uL (0-450); Eosinophils Percent Auto 2.2 % (2-4); Hematocrit 40.3 % (41-53); Hemoglobin 14.1 g/dL (13.5-17.5); Lymphocytes Absolute Auto 1600 /uL (1100-4500); Mean Corpuscular HGB Conc 34.9 % (30-36); Mean Corpuscular Hemoglobin 33.1 PG (26-34); Mean Corpuscular Volume 94.9 fL (80-100); Monocytes Absolute Auto 900 /uL (0-900); Monocytes Percent Auto 16.1 % (3-14); Neutrophils Absolute Auto 3100 /uL (1500-7000); Neutrophils Percent Auto 53.9 % (50-75); Platelet Count 242 X10^3/uL (150-400); Red Blood Cell Count 4.25 X10^6/uL (4.5-5.9); Red Cell Distribution Width 13.2 % (11.6-14.8); White Blood Cell Count 5.8 X10^3/uL (4.5-11.0)
[2020-02-12 11:11] LABS: Alanine Aminotransferase 27 IU/L (<50); Albumin 4.1 g/dL (3.5-5.0); Albumin Globulin Ratio 1.4 (1.0-2.8); Alkaline Phosphatase 59 U/L (38-126); Aspartate Aminotransferase 27 IU/L (17-59); BUN Creatinine Ratio 19.8 (6-22); Bilirubin Total 0.3 mg/dL (0.2-1.3); Blood Urea Nitrogen 21 mg/dL (9-20); Calcium 9.8 mg/dL (8.4-10.2); Carbon Dioxide 26 mmol/L (22-32); Chloride 104 mmol/L (98-107); Estimated Glomerular Filt Rate > 60.0 mL/min (>60); Glucose 120 mg/dL (80-110); HEMOLYSIS < 15 (0-50); Potassium 4.4 mmol/L (3.4-5.1); Sodium 137 mmol/L (137-145); Total Protein 7.1 g/dL (6.3-8.2)
== END ==
PROVIDERS: PCP Internal Medicine; Referring Provider Internal Medicine Cardiovascular Disease; Visit Provider Internal Medicine Cardiovascular Disease
DX: I45.2 Bifascicular block (principal); I25.118 Atherosclerotic heart disease of native coronary artery with other forms of angina pectoris
CPT/HCPCS: 36415; 80053; 85025; 85610

== ENCOUNTER → 2020-05-01 08:41 | Outpatient (CLI) | payer MEDICARE, SELFPAY ==
[2020-05-02 17:27] LABS: COVID19 Sendout Not Detected (Not Detect)
== END ==
PROVIDERS: PCP Internal Medicine; Visit Provider Physician Assistant
DX: Z11.59 Encounter for screening for other viral diseases (principal)
CPT/HCPCS: 87635

== ENCOUNTER 2020-05-04 06:31 | Day surgery (SDC) | payer MEDICARE, SELFPAY ==
[2020-04-27 07:59] VITALS: BMI 29.3
[2020-05-04] VITALS (9 sets, daily range): BP systolic 108–143; BP diastolic 64–78; PULSE 66–79; RESP 8–15; TEMP 36.1–37; O2SAT 93–98; BMI 29.3
[2020-05-04] MEDS: LACTATED RINGERS 1,000 ML 100 ML IV (07:15)
--- NOTE | 2020-05-04 07:15 | SUR.OPER ---
Supine on padded OR bed, head on pillow, arms secured on padded arm boards at <90 degrees abduction, legs uncrossed, safety belt at thigh, tape over blanket over lower legs.
--- NOTE | 2020-05-04 07:27 | PM.PREOP ---
Pre-operative Note COVID-19 COVID-19 status: Negative Interval Note History & Physical reviewed/Exam performed by Physician: Yes Changes to H&P: No
[2020-05-04] MEDS: CEFAZOLIN 2 GM/100 ML FROZ.PIGGY IV (07:58)
[2020-05-04] MEDS: BUPIVACAINE 0.25% (PF) VIAL 30 ML INJ (08:15)
--- NOTE | 2020-05-04 09:45 | PM.OP.1 ---
Operative Date/Time/Diagnoses Date of procedure: 05/04/20 Time of procedure: 09:45 Pre-op diagnosis: Left inguinal hernia Post-op diagnosis: same Procedure & Clinicians Procedure: Open inguinal hernia repair Same procedure as scheduled: Yes Indications: 74-year-old male with a symptomatic left inguinal hernia presents for repair Surgeon: Nik Prasad Click Yes if Unassisted: Yes Anesthesia Type: General Operative Notes Findings: Large direct floor defect containing colon Specimen(s): none sent Estimated Blood Loss (mL): 30 Procedure in detail: The patient was placed supine on the table and bilateral lower extremity compression devices were applied. Anesthesia was induced they were intubated with an LMA and received 2g of Ancef. A time-out was performed. They were prepped and draped in sterile fashion. The left external inguinal ring and the anterior superior iliac crest were identified and marked. 1 finger breath above the right inguinal ligament the skin was infiltrated with 0.25% bupivacaine. The skin incision was made here and the subcutaneous tissues were divided with electrocautery exposing the external oblique aponeurosis which was then opened along the direction of its fibers. The ilioinguinal nerve was identified on the anterior aspect of the cord and protected. Using a kittner cord was carefully dissected away from the inguinal canal adjacent to the pubic tubercle. The cord was freed and encircled with a Clement drain. A very large direct floor defect was identified, the floor was essentially obliterated. The direct hernia sac was carefuly open using shauna and the colon was identified and carefully reduced back into the abdomen. the hernia sac was ligated with vircyl suture. The cremasteric fibers surrounding the cord were divided using electrocautery. The vas deferens and the testicular vessels were preserved and protected. There was an indirect hernia on the anterior medial aspect of the cord which was skeletonized away from the vas deferens and testicular blood supply. The indirect hernia was skeletonized back to the internal ring and reduced spontaneously into the abdomen. A plug of Prolene mesh was placed into the floor defect and secured with Vicryl suture. I selected a 7x 15 cm lightweight Pro Loop hernia mesh. The inferior medial aspect of the mesh was anchored to the periosteum of the pubic tubercle such that there was approximately 2 cm of tubercle overlap with 0 Prolene and then was run continuously along the inferior edge of the mesh to the shelving edge of the inguinal ligament. Interrupted 3 0 Vicryl suture was used to anchor the superior aspect of the mesh to the conjoined tendon in several places. The tails were then reapproximated around the spermatic cord loosely. The tails of the mesh were then tucked under the external oblique aponeurosis. The repair was checked for hemostasis. The wound was irrigated with sterile saline. The external oblique aponeurosis was reapproximated in a running fashion using 3 0 Vicryl. The subcutaneous tissues were reapproximated with 3 0 Vicryl skin closed with 4 0 Monocryl followed by the application of Dermabond. At the end of the operation ensure that both testicles were within the scrotum. The sponge instrument count at the end operation was correct. The patient emerged from anesthesia was extubated and transferred to the postoperative care unit in stable condition. A total of 30 ml of of 0.25% bupivicaine was used to infiltrate the skin. Complications: none Post-operative Disposition: same day surgery
[2020-05-04] MEDS: OXYCODONE IR 5 MG TABLET PO ×2 (10:08→10:42)
[2020-05-04] MEDS: LACTATED RINGERS 1,000 ML 42 ML IV (10:20)
[2020-05-04] MEDS: ACETAMINOPHEN 325 MG TABLET 975 MG PO (10:44)
--- NOTE | 2020-05-04 14:34 | SUR.PHASEII ---
Late entry: Assumed care from Phill Chairez. Pt medicated with oxycodone and tylenol. called and brought in, both given d/c instructions, both voiced an under standing. Pt left when pain under control and left in stable condition.
== END 2020-05-04 12:05 | disposition home or self-care (01) ==
PROVIDERS: PCP Internal Medicine; Referring Provider Internal Medicine; Visit Provider Surgery
PROC: (CPT 49505; principal; 2020-05-04 07:45)
DX: K40.90 Unilateral inguinal hernia, without obstruction or gangrene, not specified as recurrent (principal); G47.33 Obstructive sleep apnea (adult) (pediatric); Z95.0 Presence of cardiac pacemaker; J44.9 Chronic obstructive pulmonary disease, unspecified; E78.5 Hyperlipidemia, unspecified; I10 Essential (primary) hypertension; I42.9 Cardiomyopathy, unspecified
CPT/HCPCS: 49505; C1781; J0690; J1100; J2250; J2405; J2704; J3010

== ENCOUNTER → 2020-08-01 09:10 | Outpatient (CLI) | payer MEDICARE, SELFPAY ==
[2020-08-02 20:12] LABS: COVID19 Sendout Not Detected (Not Detect)
== END ==
PROVIDERS: PCP Internal Medicine; Visit Provider Physician Assistant
DX: Z11.59 Encounter for screening for other viral diseases (principal)
CPT/HCPCS: 87635

== ENCOUNTER 2020-08-04 09:32 | Day surgery (SDC) | payer MEDICARE, SELFPAY ==
--- NOTE | 2020-08-04 | PATH_ITS ---
[facility] Accession Number: [id number] . 01 Material submitted: . PART A: colon - ASCENDING COLON POLYP PART B: colon - SIGMOID POLYP . 01 Clinical history: . SDC . 02 Diagnosis: A. Ascending Colon, Polyp, Biopsy: Colonic mucosa with surface hyperplastic-type changes and a benign lymphoid aggregate. Negative for dysplasia and malignancy. . B. Sigmoid Colon, Polyp, Biopsy: Hyperplastic polyp. MRV 08/10/2020 1502 Local . 02 Electronically signed: . Fransisca Chaudhari MD, Pathologist NPI- [id number] . 01 Gross description: . A. Received in formalin, labeled ascending colon polyp, and consists of a 0.5 x 0.5 x 0.3 cm rhodes-white fragment of soft tissue, which is entirely submitted in cassette A1. B. Received in formalin, labeled sigmoid polyp, and consists of a 0.8 x 0.6 x 0.3 cm rhodes-pink poly. The base is inked blue. The specimen is bisected and entirely submitted in cassette B1. (EA:[id number]) /MRV 08/05/2020 1545 Local . 02 Microscopic: . A. Additional levels were examined. . 02 Pathologist provided ICD-10: K63.5 . 02 CPT . 735098, [id number] Performed at: 01 [facility] [address] [facility], [place], [place] [id number] MD Jasbir Garcia MD Phone: [phone] Performed at: 02 [facility] [id number] [place], [place] [id number] MD Fransisca Chaudhari MD Phone: [phone]
[2020-08-04] MEDS: SODIUM CHLORIDE 0.9% 1,000 ML 70 ML IV (09:50)
[2020-08-04 09:51] VITALS: BP 159/88; PULSE 73; RESP 16; TEMP 36.6; O2SAT 97; BMI 29.2
[2020-08-04] MEDS: fentaNYL 250 MCG/5 ML INJ IV (11:02)
[2020-08-04] MEDS: MIDAZOLAM 5 MG/5 ML VIAL IV (11:02)
--- NOTE | 2020-08-04 11:04 | P.HP_ITS ---
History of Present Illness History of Present Illness Date Patient Seen: 08/04/20 Time Patient Seen: 11:05 Chief complaint: SDC Narrative: Patient is a pleasant 74-year-old male who presented for colonoscopy. He does have a personal history of colon polyps including advanced adenoma with a post polypectomy bleed in 2018. Patient History Medical History Bronchospastic airway disease (Acute) CAD (coronary artery disease) (Acute) Cardiomyopathy (Acute) COPD (chronic obstructive pulmonary disease) (Acute) Excessive daytime sleepiness (Inactive) Former smoker (Acute) History of left heart catheterization (Acute 02/20/20) HLD (hyperlipidemia) (Acute) HTN (hypertension) (Acute) Hx of cardiac pacemaker (Acute 03/12/20) Hx of lymphoma (Acute) Obstructive sleep apnea of adult (Chronic) Primary insomnia (Inactive) Snoring (Inactive) Surgical History History of surgery (Acute 10/1993) History of surgery (Acute 06/1998) History of surgery (Acute 06/2003) History of surgery (Acute 07/30/15) Hx of appendectomy (Acute 1968) Hx of bilateral cataract extraction (Acute) S/P colonoscopic polypectomy (Acute) Status post excision of lipoma (Acute 12/2010) Family & Social History Social History: household members spouse Tobacco & Substance use: Tobacco type cigarettes Smoking Status Former smoker alcohol intake current alcohol intake frequency holiday/special occasion Substance Use Type does not use Meds Home Medications and Allergies Home Medications Medication Instructions Recorded Confirmed Type cholecalciferol (vitamin D3) 50 mcg PO DAILY #0 01/06/11 08/04/20 History [Vitamin D3] albuterol sulfate 2 puff INHALATION PRN PRN 09/11/18 08/04/20 History aspirin 81 mg PO DAILY 09/11/18 08/04/20 History fluticasone propionate [Flonase 4 spray INTRANASAL PRN PRN 09/11/18 08/04/20 History Allergy Relief] carvedilol 6.25 mg tablet 6.25 mg PO BID 04/07/20 08/04/20 History acetaminophen [Tylenol] 650 mg PO QID PRN #60 cap 05/04/20 08/04/20 Rx ibuprofen 800 mg PO Q6H PRN #40 tab 05/04/20 08/04/20 Rx lisinopril 5 mg PO DAILY 08/04/20 08/04/20 History tiotropium bromide [Spiriva with 1 cap INHALATION DAILY 08/04/20 08/04/20 History HandiHaler] Allergies Allergy/AdvReac Type Severity Reaction Status Date / Time No Known Drug Allergies Allergy Verified 08/04/20 09:46 Review of Systems Review of Systems ROS: Yes All systems reviewed with the patient and are negative except as otherwise documented Exam Vital Signs (past 8 hours): - 08/04/20 09:51 Temperature 98 F Pulse Rate 73 Respiratory Rate 16 Blood Pressure 159/88 H Pulse Oximetry 97 Const General: cooperative, healthy appearing, comfortable, well developed and well groomed Orientation: alert, awake and oriented x3 HENMT Head: normocephalic and atraumatic Resp Effort & Inspection: normal respiratory effort and able to speak in complete s entences Auscultation: clear to auscultation bilaterally Cardio Rate: regular rate Rhythm: regular rhythm Heart Sounds: S1 normal and S2 normal GI Palpation: soft Auscultation: normal bowel sounds Extrem Right lower extremity: no edema Left lower extremity: no edema Assessment & Plan Assessment & Plan narrative: 1. Personal history of polyps Colonoscopy today, further recommendations to follow
--- NOTE | 2020-08-04 11:39 | P.OP.ENDO_ITS ---
Operative Date/Time/Diagnoses Date of procedure: 08/04/20 Time of procedure: 11:07 Procedure Notes Procedure in detail: Surgeon: Mihaela Omalley DO Procedure: Colonoscopy with polypectomy Preoperative diagnosis: 1. Personal history of colon polyps Postoperative diagnosis: 1. 3 mm polyp in the ascending colon 2. 9 mm polyp in the sigmoid colon -hemoclip applied 3. Sigmoid and descending colon diverticulosis 4. Inflammation in the rectum consistent with no history of rectal prolapse Medications: Conscious sedation using 4 mg IV of Midazolam and 125 mcg IV of Fentanyl Preanesthesia Assessment An H and P was performed/updated and the Px?s ASA class is 2. The procedure was discussed in detail with the patient. The potential risks and complications including infection, bleeding, missed lesions, perforation, need for surgery in case of perforation, prolonged hospital stay, and were explained. A brief question and answer period was allotted and once all questions were answered, informed consent was obtained. The patient was brought back to the procedure room and placed on standard monitoring. The patient?s vital signs were monitored continuously throughout the entire procedure. Prior to starting, a timeout was performed to confirm the patient?s identity, allergies, medications, and procedure. Procedure in detail The patient was placed in left lateral decubitus position and once adequate sedation was obtained a AGUSTO was performed. The digital rectal examination did not reveal any palpable lesions. The tip of the colonoscope was placed in the anal canal and advanced with some difficulty due to a redundant colon, manual p ressure was applied. We were able to advance all the way to the cecum which was identified by the appendiceal orifice and the ileocecal valve. Careful examination of all huang of the colon was performed with irrigation of any residual stool. A 2nd pass of the ascending colon was performed. - 3 mm polyp in the ascending colon -removed with Jumbo forceps - 9 mm polyp in the sigmoid colon -removed with cold snare due to his history of post polypectomy bleeding a hemoclip was applied - Sigmoid and descending colon diverticulosis - Inflammation in the rectum consistent with no history of rectal prolapse The patient tolerated the procedure well and will be brought back to the recovery area to be discharged once criteria are met. The prep was judged to be good/excellent and adequate to identify polyps less than 5 mm. The withdrawal time was 13min. The total physician intraservice time was 27min. Complications There were no complications and estimated blood loss was minimal. Recommendations: Resume previous diet Continue outPx medications Follow up pathology results Repeat colonoscopy will be determined based on pathology results An emergency contact number was given to the patient for any complications related to the procedure
[2020-08-04 11:40] VITALS: BP 127/68; PULSE 65; RESP 16; TEMP 36.9; O2SAT 94
[2020-08-04 11:45] VITALS: BP 123/63; PULSE 70; RESP 15; O2SAT 97
[2020-08-04 11:50] VITALS: BP 126/65; PULSE 72; RESP 20; O2SAT 97
[2020-08-04 12:05] VITALS: BP 133/75; PULSE 65; RESP 16; TEMP 36.8; O2SAT 96
== END 2020-08-04 12:15 | disposition home or self-care (01) ==
PROVIDERS: PCP Internal Medicine; Referring Provider Internal Medicine; Visit Provider Student in an Organized Health Care Education/Training Program
PROC: 0DJD8ZZ Inspection of Lower Intestinal Tract, Via Natural or Artificial Opening Endoscopic (ICD-10-PCS; CPT 45378; principal; 2020-08-04 10:30)
DX: Z12.11 Encounter for screening for malignant neoplasm of colon (principal); Z86.010 Personal history of colon polyps; K57.30 Diverticulosis of large intestine without perforation or abscess without bleeding; K63.5 Polyp of colon
CPT/HCPCS: 45385; 45380; J2250; J3010

== ENCOUNTER → 2020-10-14 14:42 | Outpatient (ROUT) | payer MEDICARE, SELFPAY ==
[2020-10-14 15:07] LABS: Add Manual Diff / Slide Review NO; Basophils Absolute Auto 100 /uL (0-100); Eosinophils Absolute Auto 100 /uL (0-450); Eosinophils Percent Auto 2.1 % (2-4); Hematocrit 44.4 % (41-53); Hemoglobin 14.9 g/dL (13.5-17.5); Lymphocytes Absolute Auto 1800 /uL (1100-4500); Lymphocytes Percent Auto 30.8 % (25-40); Mean Corpuscular HGB Conc 33.6 % (30-36); Mean Corpuscular Hemoglobin 32.1 PG (26-34); Mean Corpuscular Volume 95.6 fL (80-100); Monocytes Absolute Auto 800 /uL (0-900); Monocytes Percent Auto 13.7 % (3-14); Neutrophils Absolute Auto 3000 /uL (1500-7000); Neutrophils Percent Auto 52.4 % (50-75); Platelet Count 230 X10^3/uL (150-400); Red Blood Cell Count 4.65 X10^6/uL (4.5-5.9); Red Cell Distribution Width 13.2 % (11.6-14.8); White Blood Cell Count 5.8 X10^3/uL (4.5-11.0)
[2020-10-14 15:41] LABS: TSH w/ Reflex to FT4 1.72 uIU/mL (0.47-4.68)
[2020-10-14 17:35] LABS: Alanine Aminotransferase 19 IU/L (<50); Albumin 4.4 g/dL (3.5-5.0); Albumin Globulin Ratio 1.4 (1.0-2.8); Alkaline Phosphatase 68 U/L (38-126); Aspartate Aminotransferase 22 IU/L (17-59); BUN Creatinine Ratio 16.2 (6-22); Bilirubin Total 0.3 mg/dL (0.2-1.3); Blood Urea Nitrogen 17 mg/dL (9-20); Calcium 9.9 mg/dL (8.4-10.2); Carbon Dioxide 28 mmol/L (22-32); Chloride 105 mmol/L (98-107); Cholesterol 163 mg/dL (140-199); Estimated Glomerular Filt Rate > 60.0 mL/min (>60); Globulin 3.1 g/dL (1.7-4.1); Glucose 112 mg/dL (80-110); HDL Cholesterol 44 mg/dL (40-60); HEMOLYSIS < 15 (0-50); LDL Cholesterol Calculated 85 mg/dL (<100); Potassium 4.5 mmol/L (3.4-5.1); Sodium 138 mmol/L (137-145); Total Protein 7.5 g/dL (6.3-8.2); Triglycerides 168 mg/dL (35-150)
== END ==
PROVIDERS: PCP Internal Medicine; Visit Provider Internal Medicine
DX: J44.9 Chronic obstructive pulmonary disease, unspecified (principal); G47.33 Obstructive sleep apnea (adult) (pediatric); I50.9 Heart failure, unspecified
CPT/HCPCS: 80053; 80061; 84443; 85025

== ENCOUNTER → 2021-08-29 11:01 | Outpatient (CLI) | payer MEDICARE, SELFPAY ==
[2021-08-29 12:59] LABS: BUN Creatinine Ratio 14.3 (6-22); Blood Urea Nitrogen 16 mg/dL (9-20); Calcium 9.7 mg/dL (8.4-10.2); Carbon Dioxide 27 mmol/L (22-32); Chloride 103 mmol/L (98-107); Estimated Glomerular Filt Rate > 60.0 mL/min (>60); Glucose 118 mg/dL (80-110); HEMOLYSIS < 15 (0-50); Potassium 4.2 mmol/L (3.4-5.1); Sodium 139 mmol/L (137-145)
[2021-08-29 13:08] LABS: NT-proBNP (BNP-Adult 18+) 36 pg/mL (<450)
[2021-08-29 13:15] LABS: Add Manual Diff / Slide Review NO; Basophils Absolute Auto 100 /uL (0-100); Basophils Percent Auto 0.9 % (0-2); Eosinophils Absolute Auto 100 /uL (0-450); Hematocrit 43.6 % (41-53); Hemoglobin 14.8 g/dL (13.5-17.5); Lymphocytes Absolute Auto 1400 /uL (1100-4500); Mean Corpuscular Hemoglobin 32.5 PG (26-34); Mean Corpuscular Volume 95.7 fL (80-100); Monocytes Absolute Auto 800 /uL (0-900); Neutrophils Absolute Auto 3600 /uL (1500-7000); Neutrophils Percent Auto 60.1 % (50-75); Platelet Count 214 X10^3/uL (150-400); Red Blood Cell Count 4.55 X10^6/uL (4.5-5.9); Red Cell Distribution Width 13.8 % (11.6-14.8); White Blood Cell Count 5.9 X10^3/uL (4.5-11.0)
== END ==
PROVIDERS: PCP Internal Medicine; Referring Provider Internal Medicine; Visit Provider Internal Medicine
DX: J44.9 Chronic obstructive pulmonary disease, unspecified (principal); I50.9 Heart failure, unspecified
CPT/HCPCS: 36415; 80048; 83880; 85025

== ENCOUNTER → 2022-02-16 14:36 | Outpatient (CLI) | payer MEDICARE, SELFPAY ==
[2022-02-16 15:35] LABS: Hemoglobin 14.5 g/dL (13.5-17.5); Mean Corpuscular HGB Conc 33.8 % (30-36); Mean Corpuscular Hemoglobin 32.4 PG (26-34); Mean Corpuscular Volume 95.7 fL (80-100); Platelet Count 219 X10^3/uL (150-400); Red Blood Cell Count 4.49 X10^6/uL (4.5-5.9); Red Cell Distribution Width 13.8 % (11.6-14.8); White Blood Cell Count 6.9 X10^3/uL (4.5-11.0)
[2022-02-16 15:49] LABS: Alanine Aminotransferase 30 IU/L (<50); Albumin 4.6 g/dL (3.5-5.0); Albumin Globulin Ratio 1.5 (1.0-2.8); Alkaline Phosphatase 76 U/L (38-126); Aspartate Aminotransferase 28 IU/L (17-59); BUN Creatinine Ratio 20.4 (6-22); Bilirubin Total 0.4 mg/dL (0.2-1.3); Blood Urea Nitrogen 23 mg/dL (9-20); Calcium 9.3 mg/dL (8.4-10.2); Carbon Dioxide 28 mmol/L (22-32); Chloride 104 mmol/L (98-107); Cholesterol 89 mg/dL (140-199); Estimated Glomerular Filt Rate > 60 mL/min (>60); Globulin 3.1 g/dL (1.7-4.1); Glucose 102 mg/dL (80-110); HDL Cholesterol 43 mg/dL (40-60); HEMOLYSIS < 15 (0-50); LDL Cholesterol Calculated 24 mg/dL (<100); Potassium 4.3 mmol/L (3.4-5.1); Sodium 139 mmol/L (137-145); Total Protein 7.7 g/dL (6.3-8.2); Triglycerides 108 mg/dL (35-150)
[2022-02-16 16:51] LABS: TSH w/ Reflex to FT4 1.23 uIU/mL (0.47-4.68)
== END ==
PROVIDERS: PCP Internal Medicine; Referring Provider Internal Medicine; Visit Provider Internal Medicine
DX: E78.2 Mixed hyperlipidemia (principal); N40.1 Benign prostatic hyperplasia with lower urinary tract symptoms; I10 Essential (primary) hypertension; I25.10 Atherosclerotic heart disease of native coronary artery without angina pectoris; N13.8 Other obstructive and reflux uropathy
CPT/HCPCS: 36415; 80053; 80061; 84153; 84443; 85027

== ENCOUNTER 2023-08-21 13:02 | Emergency (ER) | payer MEDICARE, SELFPAY ==
[2023-08-21] VITALS (8 sets, daily range): BP systolic 144–172; BP diastolic 76–88; PULSE 61–66; RESP 16; TEMP 36.9; O2SAT 94–97; BMI 30.4
--- NOTE | 2023-08-21 13:11 | DI.RAD.S_ITS ---
PROCEDURE: XR HAND LT MIN 3V INDICATIONS: fall/wound TECHNIQUE: Three views of the hand acquired. COMPARISON: None. FINDINGS: Bones: No acute fractures or dislocations. Carpal bones are normally aligned. No suspicious bony lesions. Soft tissues: No radiopaque foreign body. No suspicious soft tissue calcifications. IMPRESSION: No acute osseous abnormality. If clinical suspicion and/or symptoms persist, additional imaging with repeat plain films, or advanced imaging (e.g. CT, MRI) may be helpful for further assessment. Approved by: Erickson Meehan M.D. on 08/21/2023 at 14:21
--- NOTE | 2023-08-21 13:15 | DI.CT.S_ITS ---
PROCEDURE: CT HEAD/BRAIN WO CON INDICATIONS: fall TECHNIQUE: Noncontrast 4.5 mm thick angled axial sections acquired from the foramen magnum to the vertex, with coronal and sagittal reformats. For radiation dose reduction, the following was used: automated exposure control, adjustment of mA and/or kV according to patient size. COMPARISON: None. FINDINGS: Image quality: Excellent. CSF spaces: Basal cisterns are patent. No extra-axial fluid collections. The ventricles are symmetric in size and shape. Brain: No intracranial bleeds or masses. There is cerebral volume loss for age, with resultant ventricular and sulcal prominence. There are periventricular and deep white matter chronic small vessel ischemic changes. There is intracranial internal carotid artery atherosclerosis. Skull and face: Calvarium and visualized facial bones appear intact, without suspicious lesions. Sinuses: Visualized sinuses and mastoids are clear. IMPRESSION: No acute intracranial pathology. Dictated by: Juan Perez M.D. on 08/21/2023 at 13:49 Approved by: Juan Perez M.D. on 08/21/2023 at 13:49
--- NOTE | 2023-08-21 13:15 | DI.CT.S_ITS ---
PROCEDURE: CT CERVICAL SPINE WO CON INDICATIONS: fall TECHNIQUE: Noncontrast 3 mm thick sections acquired from the skull base to the T4 level. Sagittal and coronal reformats were then constructed. For radiation dose reduction, the following was used: automated exposure control, adjustment of mA and/or kV according to patient size. COMPARISON: None. FINDINGS: Image quality: Excellent. Bones: No fractures or dislocations. Visualized superior ribs are intact. Severe cervical spondylosis. Chronic anterior vertebral body height loss at C6-C7. Severe disc height loss at C3-C4 and C6-C7. Chronic peripherally calcified flat inferior disc extrusion C6-C7. Severe right foraminal narrowing at C3-C4. Multilevel facet arthropathy. Soft tissues: Prevertebral soft tissues are normal in thickness. No paravertebral hematomas. No apical pneumothoraces. Biapical emphysematous change. IMPRESSION: 1. No acute cervical fracture or dislocation. 2. Severe cervical spondylitic change. 3. COPD. Dictated by: Juan Perez M.D. on 08/21/2023 at 13:49 Approved by: Juan Perez M.D. on 08/21/2023 at 13:53
--- NOTE | 2023-08-21 13:15 | DI.CT.S_ITS ---
PROCEDURE: CT FACIAL BONES WO CON INDICATIONS: fall TECHNIQUE: Noncontrast 2.5 mm thick axial images acquired from the mandible through the frontal sinuses, with coronal and sagittal reformatting. For radiation dose reduction, the following was used: automated exposure control, adjustment of mA and/or kV according to patient size. COMPARISON: None. FINDINGS: Image quality: Excellent. Bones and teeth: Orbital huang are intact. Sinus huang show no fracture or deformity. Nasal bones and septum are intact. Visualized portions of the mandible demonstrate no fractures or subluxation. Zygomatic arches are intact. Pterygoid plates are intact. Visualized portions of the skull base and auditory canals are intact. Sinuses: Paranasal sinuses are aerated, without fluid levels, mucosal thickening, or mucoceles. Mastoid air cells are aerated. Soft tissues: Left periorbital swelling. No masses or fluid collections. No enlarged lymph nodes. No soft tissue lacerations or debris. Vascular: Visualized vascular structures appear normal in the absence of contrast. Bony vascular foramina and canals are intact. IMPRESSION: No displaced facial bone fracture or mandibular fracture identified. Dictated by: Juan Perez M.D. on 08/21/2023 at 13:53 Approved by: Juan Perez M.D. on 08/21/2023 at 13:59
--- NOTE | 2023-08-21 15:07 | ED_ITS ---
HPI - Fall General Chief Complaint: Fall Stated Complaint: fall, laceration L hand/eye injury Time Seen by Provider: 08/21/23 14:42 Source: patient Mode of arrival: Ambulatory History of Present Illness HPI Narrative: 78-year-old male presents by private vehicle from home for hand injury. Patient was in the process of cleaning his home backyard pond when he slipped, cutting his hand on a metal object and hitting his face. Afterwards he states that he could see something white in his hand and it was time to seek care in the ER. Denies loss of consciousness. Feels irritation in his left eye. Denies loss of consciousness, denies use of blood thinners. Tetanus shot is within the last 2- 3 years. Related Data Home Medications Medication Instructions Recorded Confirmed aspirin 81 mg chewable tablet 81 mg PO DAILY 09/11/18 08/21/22 fluticasone propionate 50 4 spray intranasal PRN PRN Allergy 09/11/18 08/21/22 mcg/actuation nasal Symptoms spray,suspension (Flonase Allergy Relief) atorvastatin 40 mg tablet 40 mg PO BEDTIME 02/16/22 08/21/22 cholecalciferol (vitamin D3) 50 50 mcg PO BID #0 caps 02/16/22 08/21/22 mcg (2,000 unit) capsule (Vitamin D3) erythromycin with ethanol 2 % 1 applic topical DAILY PRN 02/16/22 08/21/22 topical gel zinc 50 mg tablet 50 mg PO DAILY 02/16/22 08/21/22 Previous Rx's Medication Instructions Recorded acetaminophen 325 mg capsule 650 mg (2 x 325 mg) PO QID PRN 05/04/20 (Tylenol) pain #60 caps ibuprofen 200 mg tablet 800 mg (4 x 200 mg) PO Q6H PRN 05/04/20 pain #40 tabs albuterol sulfate 90 mcg/actuation 2 puff inhalation PRN PRN Allergy 08/21/22 aerosol inhaler Symptoms #25.5 grams budesonide-formoterol HFA 80 2 puff inhalation BID #30.6 grams 08/21/22 mcg-4.5 mcg/actuation aerosol inhaler (Symbicort) carvedilol 6.25 mg tablet 6.25 mg PO BID #180 tabs 08/21/22 losartan 50 mg tablet 50 mg PO DAILY #90 tabs 08/21/22 umeclidinium 62.5 mcg/actuation 1 inh inhalation DAILY #90 ea 08/21/22 blister powder for inhalation (Incruse Ellipta) cephalexin 500 mg capsule 500 mg PO QID 7 days #28 caps 08/21/23 Allergies Allergy/AdvReac Type Severity Reaction Status Date / Time No Known Drug Allergies Allergy Verified 08/21/22 11:29 Review of Systems Review of Systems Narrative: Negative except as noted above Patient History Medical History Advanced directives, counseling/discussion 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, bilateral (~2019) CAD (coronary artery disease) Cardiomyopathy Cervical spine disease (~2018) Chicken pox Chronic back pain (~2018) Colon polyps (~2003) Complete rectal prolapse (~2015) COPD (chronic obstructive pulmonary disease) (~2011) COPD (chronic obstructive pulmonary disease) Coronary artery disease Disease of spine (~2018) Essential hypertension Former smoker Fractures (~1997) Heart block Hemorrhoid (~2014) Herniated disc (~2018) History of colon polyps History of left heart catheterization (02/20/20) HLD (hyperlipidemia) HTN (hypertension) Hx of lymphoma Measles Medicare annual wellness visit, initial Mixed hyperlipidemia Mumps Obstructive sleep apnea of adult (~2014) Primary insomnia Retinal detachment (~2013) Skin cancer (~1993) Tinnitus (~1988) Vision disorder Surgical History Anesthesia History of eye surgery (~2013) History of eye surgery (~2018) History of hernia surgery (~2019) History of surgery (10/1993) History of surgery (06/1998) History of surgery (06/2003) History of surgery (07/30/15) Hx of appendectomy (1968) Hx of bilateral cataract extraction Hx of cardiac pacemaker (03/12/20) S/P biventricular cardiac pacemaker procedure S/P colonoscopic polypectomy Status post excision of lipoma (12/2010) Family History Father Pneumonia Brother AIDS Sister History of heart bypass surgery Sister Disease of spine Circulation problem Grandfather History of heart disease Grandfather History of heart disease Social History marital status: household members: spouse occupational status: previously employed Smoking Status: Former smoker alcohol intake: current substance use type: does not use Smoking Status: Former smoker alcohol intake frequency: holidays/special occasions only Substance Use Type: does not use Exam Initial Vital Signs Initial Vital Signs: Vital Signs Temperature 98.4 F 08/21/23 13:04 Pulse Rate 66 08/21/23 13:04 Respiratory Rate 16 08/21/23 13:04 Blood Pressure 165/82 H 08/21/23 13:04 Pulse Oximetry 97 08/21/23 13:04 Oxygen Delivery Method Room Air 08/21/23 13:04 Const: Awake, alert, no acute distress, nontoxic appearing Eyes: PERRL, EOMI, subconjunctival hemorrhage on the left inner eye, positive fluorescein uptake left inner conjunctiva, negative Kenzie sign ENT: Atraumatic, dentition normal, mucous membranes moist Cardiac: regular rate, regular rhythm RESP: unlabored, clear bilaterally, no wheezing GI: Atraumatic, soft, nontender, nondistended, no rebound, no guarding MSK: Visible tendon at base of left thumb. Able to perform thumbs up and touch the thumb to the tip of each finger Skin: Warm, Dry, 4 cm laceration at the base of his left thumb Neuro: AO x3, CN II-XII grossly intact, moves all extremities Psych: affect normal, mood normal, not suicidal, not homicidal Procedures Laceration Repair Laceration 1: Site: hand Side (If applicable): left Size (cm): 4 Description: linear Depth: involves tendon (small shred of tendon involved - tendon largely intact) Local Anesthetic: lidocaine 1% Amount of anesthesia used (mL): 7 Pre-repair: wound explored, irrigated extensively and deep structures intact (minimal tendon involvement) Skin layer closed with: nylon Skin layer suture size: 5-0 Number of sutures: 11 Technique: simple, interrupted Course Course Course Narrative: Ground level fall with axonal injury. Patient does have a deep cut to the base of his left thumb with visible tendon. There appears to be a very minor involvement of the tendon however the tendon is grossly intact with intact function, intact neurologic/vascular. Imaging is reviewed, no acute intracranial pathology identified. Wound was repaired per procedure notes. Placed in a splint afterwards in order to secure thumb and to avoid any further damage. Since this was a standing water pond we will cover with prophylactic antibiotics. For the conjunctival abrasion the patient was advised to follow up with his medical lab specialist and to not use contacts until cleared by his medical lab specialist. Discharge with antibiotic ointment. Strict wound care instructions discussed with patient and at bedside and he was given signs and symptoms to look out for worsening tendon function. He was instructed to return to the emergency department immediately if he notices decreased function in his thumb. Orders Ordered: Discontinued Medications Erythromycin (Erythromycin Ophth 1 Gm Oint) 1 applic EYE-LEFT NOW ONE Stop: 08/21/23 16:18 Last Admin: 08/21/23 16:32 Dose: 1 applic Documented By: RUPA Fluorescein Sodium (Fluorescein 1 Mg Strip) 1 mg EYE-LEFT NOW ONE Stop: 08/21/23 15:07 Last Admin: 08/21/23 15:10 Dose: 1 mg Documented By: RUPA Lidocaine HCl (Lidocaine 1% 20 Ml) 20 ml INJ INTRA-OP ONE Stop: 08/21/23 15:06 Last Admin: 08/21/23 15:10 Dose: 20 ml Documented By: RUAP Proparacaine HCl (Proparacaine 0.5% Ophth Marely) 1 drops EYE-LEFT NOW ONE Stop: 08/21/23 15:07 Last Admin: 08/21/23 15:10 Dose: 1 drops Documented By: RUPA Tetracaine HCl (Tetracaine 0.5% Ophth Drops 4 Ml) 2 drops EYE-LEFT INTRA-OP ONE Stop: 08/21/23 15:06 Last Admin: 08/21/23 16:07 Dose: Not Given Documented By: RUPA Vital Signs Vital signs: Vital Signs - 8 hr 08/21/23 13:04 08/21/23 14:48 08/21/23 14:48 Temperature 98.4 F Pulse Rate 66 62 Respiratory Rate 16 16 Blood Pressure 165/82 H 172/88 H Pulse Oximetry 97 97 96 Oxygen Delivery Method Room Air Room Air 08/21/23 15:00 Temperature Pulse Rate 63 Respiratory Rate Blood Pressure Pulse Oximetry 94 Oxygen Delivery Method MDM - Fall Differential Diagnosis Differential diagnosis: Likely fracture of wrist, concussion with loss of consciousness and concussion without loss of consciousness Discharge Plan Departure Patient Disposition: Home Clinical Impression: Hand laceration, Subconjunctival hemorrhage Instructions: DI for Laceration Repair Activity Restrictions/Additional Instructions: Return for suture removal in 10 to 14 days. Keep your sutures clean and dry. Wear the hand brace for the duration that your sutures are in place. If you notice redness, swelling, drainage please come back for repeat evaluation. Prescriptions: New cephalexin 500 mg capsule 500 mg PO QID 7 Days Qty: 28 0RF No Action cholecalciferol (vitamin D3) [Vitamin D3] 50 mcg (2,000 unit) capsule 50 mcg PO BID Qty: 0 carvedilol 6.25 mg tablet 6.25 mg PO BID Qty: 180 3RF Rx Instructions: must administer with a meal/food losartan 50 mg tablet 50 mg PO DAILY Qty: 90 3RF Incruse Ellipta 62.5 mcg/actuation blister with device 1 inh inhalation DAILY Qty: 90 3RF budesonide-formoterol [Symbicort] 80-4.5 mcg/actuation HFA aerosol inhaler 2 puff inhalation BID Qty: 30.6 3RF albuterol sulfate 90 mcg/actuation HFA aerosol inhaler 2 puff Inhalation PRN PRN (Reason: Allergy Symptoms) Qty: 25.5 3RF atorvastatin 40 mg tablet 40 mg PO BEDTIME zinc 50 mg tablet 50 mg PO DAILY erythromycin with ethanol 2 % gel 1 applic topical DAILY PRN aspirin 81 mg Tablet,Chewable 81 mg PO DAILY fluticasone propionate [Flonase Allergy Relief] 50 mcg/actuation [place],Suspension 4 spray Intranasal PRN PRN (Reason: Allergy Symptoms) ibuprofen 200 mg tablet 800 mg PO Q6H PRN (Reason: pain) Qty: 40 0RF acetaminophen [Tylenol] 325 mg capsule 650 mg PO QID PRN (Reason: pain) Qty: 60 0RF Referrals: Chele Mosqueda MD [Primary Care Provider] - Stand Alone Forms: Patient Portal/API
[2023-08-21] MEDS: PROPARACAINE 0.5% OPHTH SOL 1 DROPS EYE-LEFT (15:10)
[2023-08-21] MEDS: FLUORESCEIN 1 MG STRIP EYE-LEFT (15:10)
[2023-08-21] MEDS: LIDOCAINE 1% 20 ML INJ (15:10)
[2023-08-21] MEDS: ERYTHROMYCIN OPHTH 1 GM OINT 1 APPLIC EYE-LEFT (16:32)
== END 2023-08-21 16:41 | disposition home or self-care (01) ==
PROVIDERS: Emergency Provider Emergency Medicine; PCP Internal Medicine
DX: S61.412A Laceration without foreign body of left hand, initial encounter (principal); H11.32 Conjunctival hemorrhage, left eye; J44.9 Chronic obstructive pulmonary disease, unspecified; W26.8XXA Contact with other sharp object(s), not elsewhere classified, initial encounter; W18.00XA Striking against unspecified object with subsequent fall, initial encounter; Y93.H9 Activity, other involving exterior property and land maintenance, building and construction; Y92.017 Garden or yard in single-family (private) house as the place of occurrence of the external cause; Y99.8 Other external cause status
CPT/HCPCS: 12002; 70450; 70486; 72125; 73130; 99283; 99284

== ENCOUNTER → 2023-09-06 10:21 | Outpatient (CLI) | payer MEDICARE, SELFPAY ==
[2023-09-06 11:16] LABS: Alanine Aminotransferase 27 IU/L (<50); Albumin 4.5 g/dL (3.5-5.0); Albumin Globulin Ratio 1.3 (1.0-2.8); Alkaline Phosphatase 71 U/L (38-126); Aspartate Aminotransferase 27 IU/L (17-59); BUN Creatinine Ratio 15.2 (6-22); Bilirubin Total 0.7 mg/dL (0.2-1.3); Blood Urea Nitrogen 15 mg/dL (9-20); Calcium 10.2 mg/dL (8.4-10.2); Carbon Dioxide 27 mmol/L (22-32); Chloride 102 mmol/L (98-107); Cholesterol 85 mg/dL (140-199); Estimated Glomerular Filt Rate > 60 mL/min (>60); Globulin 3.4 g/dL (1.7-4.1); Glucose 124 mg/dL (80-110); HDL Cholesterol 42 mg/dL (40-60); HEMOLYSIS < 15 (0-50); LDL Cholesterol Calculated 26 mg/dL (<100); Potassium 4.3 mmol/L (3.4-5.1); Sodium 137 mmol/L (137-145); Total Protein 7.9 g/dL (6.3-8.2); Triglycerides 87 mg/dL (35-150)
[2023-09-06 11:46] LABS: Prostate Specific Antigen 2.31 ng/mL (0.10-4.00)
== END ==
PROVIDERS: PCP Internal Medicine; Referring Provider Internal Medicine; Visit Provider Internal Medicine
DX: E78.2 Mixed hyperlipidemia (principal); N40.1 Benign prostatic hyperplasia with lower urinary tract symptoms; I10 Essential (primary) hypertension; N13.8 Other obstructive and reflux uropathy; I25.10 Atherosclerotic heart disease of native coronary artery without angina pectoris
CPT/HCPCS: 36415; 80053; 80061; 84153

== ENCOUNTER → 2024-09-08 14:11 | Outpatient (CLI) | payer MEDICARE, SELFPAY ==
[2024-09-08 15:45] LABS: Aspartate Aminotransferase 31 IU/L (17-59); BUN Creatinine Ratio 18.7 (6-22); Blood Urea Nitrogen 23 mg/dL (9-20); Calcium 9.4 mg/dL (8.4-10.2); Carbon Dioxide 24 mmol/L (22-32); Chloride 107 mmol/L (98-107); Cholesterol 114 mg/dL (140-199); Estimated Glomerular Filt Rate 59 mL/min (>60); Glucose 115 mg/dL (80-110); HDL Cholesterol 42 mg/dL (40-60); HEMOLYSIS < 15 (0-50); LDL Cholesterol Calculated 11 mg/dL (<100); Sodium 138 mmol/L (137-145); Triglycerides 307 mg/dL (35-150)
[2024-09-08 16:07] LABS: Creatinine Urine Random 47.28 mg/dL
[2024-09-08 16:10] LABS: Microalbumin Urine Random < 0.6 mg/dL (0-1.6)
[2024-09-08 16:16] LABS: Prostate Specific Antigen 2.08 ng/mL (0.10-4.00)
== END ==
LOC: LAB 14:12
PROVIDERS: PCP Internal Medicine; Referring Provider Internal Medicine; Visit Provider Internal Medicine
DX: I10 Essential (primary) hypertension (principal); N40.1 Benign prostatic hyperplasia with lower urinary tract symptoms; N13.8 Other obstructive and reflux uropathy; E78.2 Mixed hyperlipidemia
CPT/HCPCS: 80048; 80061; 82043; 82570; 84153; 84450

== ENCOUNTER → 2024-12-16 | Outpatient (CLI) | payer MEDICARE, SELFPAY ==
--- NOTE | 2024-12-16 10:48 | DI.US.S_ITS ---
PROCEDURE: US SOFT TISSUE ABDOMEN INDICATIONS: LEFT GROIN PALPABLE AND GROWING PER PATIENT. HISTORY OF LEFT INGUINAL HERNIA CONTAINING BOWEL REPAIR 2019. TECHNIQUE: Real-time scanning was performed of the lower abdomen/groin with image documentation. COMPARISON: None. FINDINGS: Sonographic images in the lower abdomen/groin were obtained. Within the region of the left groin, there is a focus of heterogeneous echogenicity without increased vascularity. It measures approximately 4.2 x 4.3 x 3.1 cm. This appears to be adjacent to the lateral mesh although not well appreciated. No change with Valsalva. IMPRESSION: Heterogeneous structure appearing to be adjacent to prior right hernia repair mesh. It is poorly evaluated. While recurrent hernia cannot be definitively excluded, there is no change with Valsalva or definitively identified bowel. If concern persists, CT is recommended. Dictated by: Viktoria Freeman M.D. on 12/22/2024 at 14:44 Approved by: Viktoria Freeman M.D. on 12/22/2024 at 14:46
--- NOTE | 2024-12-16 10:48 | DI.US.S_ITS ---
PROCEDURE: US CAROTID DOPPLER BI INDICATIONS: CAROTID PLAQUE SEEN ON CT 07/2023. TECHNIQUE: Color and pulse Doppler interrogation was performed of both carotid systems, with image documentation and velocity measurements. COMPARISON: None. FINDINGS: Stenosis calculations are based on SRU (S[employer] in Ultras[employer]) criteria. Right side: Brachial blood pressure: 124/73 mm Hg. Common carotid artery peak systolic velocity: 57 cm/sec. Internal carotid artery peak systolic velocity: 85 cm/sec. Internal carotid artery end diastolic velocity: 31 cm/sec. External carotid artery peak systolic velocity: 128 cm/sec. ICA/CCA peak systolic ratio: 1.5 . [place] scale imaging description: Mild plaque at the bifurcation Percent internal carotid artery stenosis: Less than 50% . Vertebral artery: Flow direction is antegrade. Left side: Brachial blood pressure: 113/67 mm Hg. Common carotid artery peak systolic velocity: 74 cm/sec. Internal carotid artery peak systolic velocity: 72 cm/sec. Internal carotid artery end diastolic velocity: 27 cm/sec. External carotid artery peak systolic velocity: 114 cm/sec. ICA/CCA peak systolic ratio: 1.0 . [place] scale imaging description: Mild plaque at the bifurcation Percent internal carotid artery stenosis: Less than 50% . Vertebral artery: Flow direction is antegrade. IMPRESSION: 1. In the right carotid artery, there is less than 50% stenosis based on peak systolic velocity criteria. 2. In the left carotid artery, there is less than 50% stenosis based on peak systolic velocity criteria. 3. Antegrade vertebral arteries. Dictated by: Viktoria Freeman M.D. on 12/16/2024 at 16:44 Approved by: Viktoria Freeman M.D. on 12/16/2024 at 16:45
== END ==
PROVIDERS: PCP Internal Medicine; Referring Provider Internal Medicine; Visit Provider Internal Medicine
DX: I65.23 Occlusion and stenosis of bilateral carotid arteries (principal); R19.09 Other intra-abdominal and pelvic swelling, mass and lump
CPT/HCPCS: 76705; 93880

== ENCOUNTER → 2025-01-15 10:45 | Outpatient (CLI) | payer MEDICARE, SELFPAY ==
--- NOTE | 2025-01-15 10:49 | DI.RAD.S_ITS ---
PROCEDURE: XR ANKLE RT MIN 3V INDICATIONS: RT FOOT ANKLE PAIN TECHNIQUE: 3 views of the ankle were acquired. COMPARISON: [facility], , XR FOOT RT MIN 3V, 01/15/2025, 10:51. FINDINGS: Bones: No fractures or dislocations. Ankle mortise is normally aligned. No suspicious bony lesions. Calcaneal screw is intact. Moderate to severe degenerative changes in the hindfoot and midfoot. Soft tissues: No tibiotalar joint effusion. Achilles tendon appears normal. IMPRESSION: Moderate to severe degenerative changes in the hindfoot and midfoot. Dictated by: Conor Patterson M.D. on 01/15/2025 at 18:05 Approved by: Conor Patterson M.D. on 01/15/2025 at 18:06
--- NOTE | 2025-01-15 10:49 | DI.RAD.S_ITS ---
PROCEDURE: XR FOOT RT MIN 3V INDICATIONS: RT FOOT ANKLE PAIN TECHNIQUE: 3 views of the foot were acquired. COMPARISON: [facility], CR, XR ANKLE RT MIN 3V, 01/15/2025, 10:51. FINDINGS: Bones: No fractures or dislocations. No suspicious bony lesions. Calcaneal screw. No Dena screw lucency. Moderate to severe degenerative changes in the hindfoot and midfoot. Soft tissues: No tibiotalar joint effusion. Achilles tendon appears normal. IMPRESSION: Calcaneal screw is intact. Moderate to severe degenerative changes in the hindfoot and midfoot. Dictated by: Conor Patterson M.D. on 01/15/2025 at 18:03 Approved by: Conor Patterson M.D. on 01/15/2025 at 18:05
== END ==
PROVIDERS: PCP Internal Medicine; Referring Provider Internal Medicine; Visit Provider Podiatrist Foot & Ankle Surgery
DX: M79.671 Pain in right foot (principal)
CPT/HCPCS: 73610; 73630

== ENCOUNTER → 2025-09-08 09:49 | Outpatient (CLI) | payer MEDICARE, SELFPAY ==
--- NOTE | 2025-09-08 09:50 | DI.RAD.S_ITS ---
PROCEDURE: XR CHEST 2V INDICATIONS: copd TECHNIQUE: 2 views of the chest were acquired. COMPARISON: [facility], CR, XR CHEST 2V, 12/01/2019, 18:00. FINDINGS: Surgical changes and devices: Interval placement of left subclavian pacemaker, terminates in the right atrium, right ventricular apex and the coronary sinus. Lungs and pleura: Lungs are clear. No pleural effusions or pneumothorax. Mediastinum: Mediastinal contours are normal. Heart size is normal. Bones and chest wall: No suspicious bony abnormalities. Soft tissues appear unremarkable. IMPRESSION: No acute cardiopulmonary abnormality is seen. Dictated by: Aurora Pollock M.D. on 09/08/2025 at 12:34 Approved by: Aurora Pollock M.D. on 09/08/2025 at 12:35
[2025-09-08 11:18] LABS: Blood Urea Nitrogen 23 mg/dL (9-20); Calcium 9.9 mg/dL (8.4-10.2); Carbon Dioxide 26 mmol/L (22-32); Chloride 105 mmol/L (98-107); Cholesterol 83 mg/dL (140-199); Estimated Glomerular Filt Rate 59 mL/min (>60); Glucose 103 mg/dL (70-99); HDL Cholesterol 48 mg/dL (40-60); HEMOLYSIS < 15 (0-50); Potassium 4.6 mmol/L (3.4-5.1); Sodium 142 mmol/L (137-145); Triglycerides 71 mg/dL (35-150)
[2025-09-08 11:49] LABS: Prostate Specific Antigen 3.77 ng/mL (0.10-4.00)
== END ==
PROVIDERS: PCP Internal Medicine; Referring Provider Internal Medicine; Visit Provider Internal Medicine
DX: J44.9 Chronic obstructive pulmonary disease, unspecified (principal); I10 Essential (primary) hypertension; N40.1 Benign prostatic hyperplasia with lower urinary tract symptoms; N13.8 Other obstructive and reflux uropathy; E78.2 Mixed hyperlipidemia
CPT/HCPCS: 36415; 71046; 80048; 80061; 84153; 84450

== ENCOUNTER → 2025-09-15 08:16 | Outpatient (CLI) | payer MEDICARE, SELFPAY | LOC: RESP 08:16 | PROVIDERS: PCP Internal Medicine; Referring Provider Internal Medicine; Visit Provider Internal Medicine | DX: J44.9 Chronic obstructive pulmonary disease, unspecified (principal); Z87.891 Personal history of nicotine dependence; J98.8 Other specified respiratory disorders; R94.2 Abnormal results of pulmonary function studies | CPT/HCPCS: 94060; 94726; 94729 ==